=== PATIENT | female | born 1960 | race Caucasian/White ===

== ENCOUNTER → 2020-02-06 14:55 | Outpatient (BNVA) | payer OTHER, SELFPAY | PROVIDERS: PCP Internal Medicine; Referring Provider Internal Medicine; Visit Provider Internal Medicine | DX: I95.0 Idiopathic hypotension (principal); Z86.73 Personal history of transient ischemic attack (TIA), and cerebral infarction without residual deficits; Z79.82 Long term (current) use of aspirin; Z79.899 Other long term (current) drug therapy | CPT/HCPCS: 99212 ==

== ENCOUNTER 2021-12-13 16:10 | Observation (INO) | payer OTHER, SELFPAY ==
[2021-12-13] VITALS (7 sets, daily range): BP systolic 95–147; BP diastolic 24–88; PULSE 50–74; RESP 15–18; TEMP 36.2–37.9; O2SAT 90–94; BMI 22.8
--- NOTE | ~2021-12-13 | CT_ITS ---
EXAMINATION: CT ANGIOGRAM HEAD CT ANGIOGRAM NECK CLINICAL INFORMATION: Reason for Exam slurred speech, hx of stroke COMPARISON: CTA head and neck 04/14/2019 TECHNIQUE: Initial noncontrast taper and floater imaging of the head and neck was performed. Comparison is made with noncontrast head CT from earlier today. Test bolus sequences followed by intravenous administration 70 mL of Omnipaque 350. Helical imaging was performed in the axial plane from the aortic arch to the skull vertex. Delayed postcontrast imaging of the head was also performed. The data was processed at the hybrid technologist's workstation for generation of MIP sequences. Angled MIPs and volume rendered reformatted images were also generated at an offline 3D workstation. Stenoses are assessed in accordance with NASCET criteria unless otherwise indicated. DLP: 1421 mGy-cm This CT examination was performed using dose optimization techniques as appropriate, variously including the following: *Automated exposure control. *Adjustment of mA and/or kV according to patient size (this includes techniques or standardized protocols for targeted exams where dose is matched to indication/reason for exam; i.e. extremities or head). *Use of iterative reconstruction technique. FINDINGS: CT Head: There is no evidence of acute intracranial hemorrhage or edematous territorial infarction. There is no abnormal attenuation within the brain parenchyma. Dowd-white matter differentiation is preserved. The ventricles are normal in size and configuration. No evidence for obstructive hydrocephalus. No abnormal mass effect or midline shift. No extra-axial fluid collections. No pathologic intra-axial enhancement or regional oligemia. No acute soft tissue or osseous abnormalities. The mastoid air cells and paranasal sinuses are clear. CT Neck: Status post thyroidectomy. The remaining cervical soft tissues are within normal limits. Multilevel cervical spondylosis. There are multiple dental caries and periapical lucencies. CT Upper Chest: Biapical pulmonary scarring and paraseptal and centrilobular emphysema. Evaluation of the lung apices, particularly the right lung apex, is significantly limited due to motion artifact as well as streak artifact from contrast in the right superior vena cava. The visualized lung apices and upper mediastinum are within normal limits. Neck CTA: Aortic Arch: Normal contour and caliber. Classic 3 vessel branching pattern of the aortic arch. Great Vessel Origins: No significant stenosis of the branch origins. Right Common Carotid Artery: No focal stenosis or occlusion. Cervical Right Internal Carotid Artery: Normal opacification without focal stenosis or occlusion. Left Common Carotid Artery: No focal stenosis or occlusion. Cervical Left Internal Carotid Artery: Normal opacification without focal stenosis or occlusion. Cervical Right Vertebral Artery: No focal stenosis or occlusion. Cervical Left Vertebral Artery: No focal stenosis or occlusion. Brain CTA: Intracranial Internal Carotid Arteries: No focal stenosis or occlusion. Right Anterior Cerebral Artery: Normal A1 segment. Normal opacification of the distal MALU segments. Left Anterior Cerebral Artery: Normal A1 segment. Normal opacification of the distal MALU segments. Fenestrated proximal A2 segment. Anterior Communicating Artery: Normal. Right Middle Cerebral Artery: Normal M1 segment of the MCA without focal stenosis or occlusion. Normal arborization of the distal segments. Left Middle Cerebral Artery: Normal M1 segment of the MCA without focal stenosis or occlusion. Normal arborization of the distal segments. Right Vertebral Artery: Normal V4 segment. Left Vertebral Artery: Normal V4 segment. Basilar Artery: Normal without focal stenosis or occlusion. Normal appearance of the proximal superior cerebellar arteries. Right Posterior Cerebral Artery: The P1 segment is diminutive. origin of the BLOW MOLD OPERATOR with robust opacification of the posterior communicating artery. Normal opacification of the distal BLOW MOLD OPERATOR segments. Left Posterior Cerebral Artery: Normal P1 segment. Normal opacification of the distal BLOW MOLD OPERATOR segments. Normal opacification of the superior sagittal, straight, transverse, and sigmoid sinuses. CT/CT angio head neck stroke IMPRESSION: No arterial high grade stenosis or large vessel occlusion in the head or neck. Above impression was communicated to Dr. Shanae Byers on 12/13/2021 at 5:05 PM
--- NOTE | ~2021-12-13 | MR_ITS ---
EXAMINATION: MR BRAIN WITHOUT CONTRAST CLINICAL INFORMATION: CVA COMPARISON: CTA head and neck 12/13/2021, MRI of the brain without contrast 04/15/2019 TECHNIQUE: Multiplanar multisequence MR imaging of the brain was obtained without intravenous contrast. FINDINGS: There is no acute infarct on diffusion-weighted imaging. There is no intracranial hemorrhage on iron-sensitive imaging. No extra-axial collection or mass effect/herniation. Scattered periventricular and deep white matter T2 FLAIR hyperintensities consistent with mild underlying microangiopathy. Chronic hemosiderin staining along the right superior aspect of the cerebellum, likely sequela of prior hemorrhage. No hydrocephalus. Mild generalized cerebral volume loss with commensurate sulcal and ventricular prominence. The major flow voids at the skull base are preserved. Small cavum septum pellucidum et vergae The midline structures are normal. The cerebellar tonsils are normally positioned. The craniocervical junction is normal. Marrow signal is within normal limits. The visualized soft tissues are without significant abnormality. No signal abnormality within the paranasal sinuses or within the mastoid air cells. MR/MR head/brain wo con IMPRESSION: No acute infarct or other acute intracranial abnormality
--- NOTE | ~2021-12-13 | CT_ITS ---
EXAMINATION: CT HEAD WITHOUT CONTRAST (STROKE PROTOCOL) CLINICAL INFORMATION: Stroke protocol. Slurred speech COMPARISON: Baseline 04/15/2019 TECHNIQUE: Contiguous axial imaging was performed from the skull base to vertex without intravenous administration of contrast. This CT examination was performed using dose optimization techniques as appropriate, variously including the following: *Automated exposure control *Adjustment of mA and/or kV according to patient size (this includes techniques or standardized protocols for targeted exams where dose is matched to indication/reason for exam; i.e. extremities or head) *Use of iterative reconstruction technique DLP: 660 mGy-cm FINDINGS: No acute hemorrhage. No definite acute edematous infarct. No extra-axial collections. No hydrocephalus. Brainstem and cerebellum intact. No calvarial abnormality. CT/CT head for stroke IMPRESSION: No acute intracranial pathology. This critical result was called to Rosalind Byers at 4:35 PM hours on 12/13/2021. It was ascertained that the content and urgency of the report was understood at the time of direct communication.
--- NOTE | ~2021-12-13 | XR_ITS ---
EXAMINATION: XR CHEST CLINICAL INFORMATION: Dizziness. Slurred speech. COMPARISON: Prior chest radiographs, most recently 04/14/2019 TECHNIQUE: Frontal view of the chest was obtained. FINDINGS: There are multiple surgical clips again noted on either side of the trachea. No significant abnormality is noted involving the heart, lungs, mediastinum, bony thorax or soft tissues. XR/XR chest 1V IMPRESSION: Unremarkable examination.
--- NOTE | 2021-12-13 16:19 | ED_ITS ---
HPI - General Adult General Chief complaint: Stroke Stated complaint: ? stroke slurred speak weakness left side Time Seen by Provider: 12/13/21 16:14 Source: patient and family (daughter) Mode of arrival: ambulatory Limitations: no limitations History of Present Illness HPI narrative: Patient is a 61 year old female presenting to the emergency department today with left sided weakness and trouble word finding. Patient states that over the last 2-3 days she has been having progressively worsening left sided weakness and word finding. Patient's daughter states that during her time with the patient this evening she noticed it getting worse. Patient states that she had a stroke 2 years ago and at that time, had right sided weakness. Patient states that at that time, she was on Eliquis for a month and then was stopped. Patient denies any dizziness, lightheadedness, abdominal pain, nausea, vomiting, fever, chills, blurry vision, double vision, loss of vision, chest pain, difficulty breathing, shortness of breath, back pain, night sweats, pain with urination, increased urinary frequency, increased urinary urgency, blood in her urine or stool, syncope or a near syncopal episode, recent trauma or falls, bowel incontinence, bladder incontinence, bowel retention, bladder retention, or any other complaints at this time. Patient states that she does have COPD and she is still a daily smoker. Onset (ago): day(s) (2-3) Relieving factors: none Exacerbating factors: none Associated symptoms: denies other symptoms Treatments prior to arrival: none Related Data Home Medications Medication Instructions Recorded Confirmed ascorbic acid (vitamin C) 250 mg 1 tab PO DAILY 12/13/21 12/13/21 tablet aspirin 81 mg tablet,delayed 81 mg PO DAILY 12/13/21 12/13/21 release clonazepam 0.5 mg tablet 0.5 mg PO DAILY PRN Anxiety 12/13/21 12/13/21 clonazepam 0.5 mg tablet 1 tab PO DAILY 12/13/21 12/13/21 coenzyme Q10 100 mg capsule 1 cap PO SUWEFR@0900 12/13/21 12/13/21 ergocalciferol (vitamin D2) 1,250 1 cap PO QWEEK 12/13/21 12/13/21 mcg (50,000 unit) capsule (Vitamin D2) fluticasone 100 mcg-salmeterol 50 1 puff inhalation BID 12/13/21 12/13/21 mcg/dose blistr powdr for inhalation (Advair Diskus) gabapentin 400 mg capsule 1 cap PO TID 12/13/21 12/13/21 lamotrigine 100 mg tablet 1 tab PO BID 12/13/21 12/13/21 tiotropium bromide 18 mcg capsule 1 cap inhalation DAILY 12/13/21 12/13/21 with inhalation device (Spiriva with HandiHaler) tramadol 50 mg tablet 1 tab PO Q6H PRN Pain 12/13/21 12/13/21 Allergies Allergy/AdvReac Type Severity Reaction Status Date / Time dexamethasone [From DECADRON] Allergy Unknown UNKNOWN Verified 12/13/21 16:31 ketorolac [From TORADOL] Allergy Unknown SEVERE RASH Verified 12/13/21 16:31 mushroom [MUSHROOMS] Allergy Unknown UNKNOWN Verified 12/13/21 16:31 oxcarbazepine Allergy Unknown RASH Verified 12/13/21 16:31 [From TRILEPTAL] prochlorperazine Allergy Unknown SEVERE RASH Verified 12/13/21 16:31 [PROCHLORPERAZINE] shellfish derived Allergy Unknown N/V Verified 12/13/21 16:31 [SHELLFISH DERIVED] SEAFOOD Allergy Unknown N/V Uncoded 12/13/21 16:31 Review of Systems Constitutional: Constitutional: Reports no additional constitutional complaints, Denies chills, Denies fever(s) and Denies night sweats Eyes: Eyes: Reports no additional eye complaints, Denies blurry vision, Denies change in vision, Denies diplopia, Denies eye discharge, Denies loss of vision and Denies eye pain ENT: Denies dizziness Cardiovascular: Cardiovascular: Reports no additional cardiovascular complaints, Denies chest pain, Denies lightheadedness, Denies Loss of Consciousness and Denies dyspnea Respiratory: Respiratory: Reports no additional respiratory complaints and Denies dyspnea Gastrointestinal: Gastrointestinal: Reports no additional gastrointestinal complaints, Denies abdominal pain, Denies melena, Denies hematochezia, Denies change in bowel habits and Denies change in stool character Genitourinary: Genitourinary: Denies hematuria, Denies urinary frequency, Denies dysuria, Denies urinary incontinence, Denies urinary hesitancy and Denies urinary urgency Musculoskeletal: Musculoskeletal: Reports no additional musculoskeletal complaints, Denies numbness and Denies tingling Neurologic: Denies dizziness, Denies loss of vision, Denies numbness and Denies tingling Comments: left sided weakness, trouble word finding Psychiatric: Psychiatric: Reports no additional psychiatric complaints Endocrine: Endocrine: Reports no additional endocrine complaints Hematologic/Lymphatic: Hematologic/Lymphatic: Reports no additional hematologic/lymphatic complaints Allergic/Immunologic: Allergic/Immunologic: Reports no additional allergic/immunologic complaints PMFSH Past Medical History Attestation statement: The following information was validated with the patient. Source: old records reviewed and obtained from family (daughter) Medical History Cerebrovascular accident Idiopathic hypotension Surgical History History of endoscopy (~01/15/20) History of thyroidectomy History of transesophageal echocardiography ([facility]) (~09/29/19) Family History Family History Father Myocardial infarction Mother No problems noted. Social History Social History Patient Tobacco Use Status: Current everyday Tobacco user Cigarettes Per Day: 2 Advance Directives: Yes Advance Directives Information Provided: No Advance Directives on File: No Patient : No Physical Exam ED Vital Signs: Vital Signs - 24 hr 12/13/21 16:14 12/13/21 16:54 12/13/21 17:43 Temperature 98.3 F 97.4 F 98.2 F Pulse Rate 74 64 55 Respiratory Rate 16 16 16 Blood Pressure 147/88 H 114/55 L Pulse Oximetry 90 L 93 94 Oxygen Delivery Method Room Air Nasal Cannula Nasal Cannula Oxygen Flow Rate 1.5 1.5 12/13/21 19:12 Temperature 100.2 F Pulse Rate 60 Respiratory Rate 16 Blood Pressure 106/48 L Pulse Oximetry 92 Oxygen Delivery Method Nasal Cannula Oxygen Flow Rate 1 BMI result Body Mass Index 20.0 Const General: cooperative, no acute distress, alert and awake Nutritional Appearance: well nourished Orientation/consciousness: patient oriented x3 Limitations: no limitations HENMT Head: Yes normal to inspection and Yes atraumatic Ears: hearing grossly normal bilaterally and external ears normal General nose exam: Normal external nose present, no nasal discharge noted and no epistaxis Face and sinus: Yes normal facial exam, No abrasion and No laceration Mouth: Normal oral and palatal mucosa present, no drooling and no muffled voice Eyes General: appearance normal, both eyes and all related structures Periorbital: periorbital findings normal Eyelids: Yes eyelids normal Conjunctivae: conjunctivae normal Pupils: Equal, round and reactive pupils present EOM: EOMs intact bilaterally Neck Neck: Yes normal visual inspection, Yes full ROM and Yes no lymphadenopathy Chest Chest palpation & inspection: normal inspection of the chest Resp Effort & Inspection: normal respiratory effort and able to speak in complete sentences Auscultation: clear to auscultation bilaterally Cardio Rate: regular rate Rhythm: regular rhythm GI Inspection: Yes normal to inspection Neuro General: patient oriented x3 and moves all extremities Cranial nerves: Yes Equal, round and reactive pupils present Cognition (Neuro): normal cognition Motor exam (neuro): Other motor observations present (weakness noted to the left upper and lower extremity) Extrem General: Yes normal to inspection, Yes full ROM and Yes capillary refill normal Psych Appearance: grossly normal Mental Status: mental status grossly normal Affect: normal affect Attitude: cooperative Thought process: Normal thought process present Thought content: Normal thought content present Insight: Good insight present (Psych) NIH Stroke Scale Internal: Initial- Upon Arrival Time: 16:19 Level of Consciousness: Alert Level of Consciousness Questions: Answers both questions correctly Level of Consciousness Commands: Performs both tasks correctly Best Gaze: Normal Visual: No visual loss Facial Palsy: Normal Motor Arm (Right): No drift Motor Arm (Left): Some effort against gravity Motor Leg (Right): No drift Motor Leg (Left): Some effort against gravity Limb Ataxia: Present in two limbs Sensory: Normal Best Language: No aphasia Dysarthia: Normal Extinction and Inattention: No abnormality Score: 6 Medical Decision Making [facility] Narrative Medical decision making narrative: Patient is a 61 year old female presenting to the emergency department today w ith left sided weakness. Patient's physical exam showed left sided arm and leg weakness with bilateral clonus. Patient's blood work was unremarkable. Patient's urine showed no acute process. Patient's EKG was unremarkable. Patient's chest x-ray, head CT, head CTA, and neck CTA all showed no acute process. Patient was examined by Dr. Valencia who agreed the patient had bilateral clonus with definite left sided weakness. He spoke to Dr. Marmolejo, who recommended giving Plavix and admitting. I explained my physical exam findings as well as all test results to the patient and the patient's daughter. I answered all questions asked by the patient and the patient's daughter. I spoke to Dr. Garibay who agreed to admission. Patient and the patient's daughter verbalized agreement and understanding with this treatment plan and admission. Medical Records Medical records reviewed: Yes I reviewed the patient's medical records. Lab Data Lab results reviewed: Yes I reviewed the patient's lab results. Result diagrams: 12/13/21 17:30 12/13/21 18:02 Labs: Lab Results 12/13/21 12/13/21 12/13/21 Range/Units 17:10 17:30 17:30 WBC 8.9 (4.8-10.8) X10*3/uL RBC 5.04 (4.20-5.50) X10*6/uL Hgb 15.9 (12.0-16.0) g/dl Hct 49.5 H (37.0-47.0) % MCV 98.2 H (80.0-98.0) fL MCH 31.5 (27.0-33.0) pg MCHC 32.1 (31.0-35.0) g/dl RDW 14.3 (11.0-16.0) % Plt Count 295 (160-400) X10*3/uL MPV 10.0 (9.4-12.3) fL Immature Gran % (Auto) 0.5 H (0.0-0.4) % Neut % (Auto) 66.3 (45-73) % Lymph % (Auto) 27.2 (20-40) % Wallace % (Auto) 4.5 (2-11) % Eos % (Auto) 0.9 (0-4) % Baso % (Auto) 0.6 (0-2) % Lymph # (Auto) 2.4 (1.2-4.9) X10*3/uL Wallace # (Auto) 0.4 (0.1-1.2) X10*3/uL Eos # (Auto) 0.1 (0.0-0.4) X10*3/uL Baso # (Auto) 0.1 (0.0-0.2) X10*3/uL Abs Immat Gran (auto) 0.04 H (0.00-0.03) X10*3/uL Absolute Neuts (auto) 5.9 (2.0-8.3) x10*3/uL Absolute Nucleated RBC 0.000 (0.0-0.012) X10*3/uL Nucleated RBC % (auto) 0.0 (0.0-0.2) /100WBC PT 10.8 (10.0-13.1) SEC INR 0.9 (0.9-1.1) APTT 38.7 H (26.0-36.4) SEC Sodium (135-145) mmol/L Potassium (3.3-5.1) mmol/L Chloride (96-108) mmol/L Carbon Dioxide (22-29) mmol/L Anion Gap (12-20) BUN (9-16) mg/dL Creatinine (0.5-1.4) mg/dL Estim Creat Clear Calc Estimated GFR POC Glucose 87 (60-115) mg/dL Random Glucose (60-115) mg/dL Calcium (8.4-10.2) mg/dL Magnesium (1.6-2.6) mg/dL Total Bilirubin (0.0-1.0) mg/dL Direct Bilirubin (0.0-0.5) mg/dL AST (5-31) U/L ALT (0-31) U/L Alkaline Phosphatase (39-117) U/L Total Creatine Kinase (26-140) U/L Troponin I High Sens (<3.5-17.0) ng/L Total Protein (6.5-8.0) g/dL Albumin (3.5-5.0) g/dL TSH (0.32-4.0) uIU/mL Urine Color Urine Appearance Urine pH (5.0-9.0) Ur Specific [place] (1.005-1.025) Urine Protein (Neg-Trace) mg/dL Urine Glucose (UA) (Negative) mg/dL Urine Ketones (Negative) mg/dL Urine Blood (Negative) Urine Nitrite (Negative) Ur Leukocyte Esterase (Negative) Urine RBC (0-2) /HPF Urine WBC (0-5) /HPF Ur Squamous Epith Cells (0-2) /HPF Urine Bacteria (None Seen) Hyaline Casts (0-2) /LPF Ethyl Alcohol mg/dL COVID-19 ([facility]) (Negative) COVID-19 Clin Com 12/13/21 12/13/21 12/13/21 Range/Units 17:30 17:30 18:02 WBC (4.8-10.8) X10*3/uL RBC (4.20-5.50) X10*6/uL Hgb (12.0-16.0) g/dl Hct (37.0-47.0) % MCV (80.0-98.0) fL MCH (27.0-33.0) pg MCHC (31.0-35.0) g/dl RDW (11.0-16.0) % Plt Count (160-400) X10*3/uL MPV (9.4-12.3) fL Immature Gran % (Auto) (0.0-0.4) % Neut % (Auto) (45-73) % Lymph % (Auto) (20-40) % Wallace % (Auto) (2-11) % Eos % (Auto) (0-4) % Baso % (Auto) (0-2) % Lymph # (Auto) (1.2-4.9) X10*3/uL Wallace # (Auto) (0.1-1.2) X10*3/uL Eos # (Auto) (0.0-0.4) X10*3/uL Baso # (Auto) (0.0-0.2) X10*3/uL Abs Immat Gran (auto) (0.00-0.03) X10*3/uL Absolute Neuts (auto) (2.0-8.3) x10*3/uL Absolute Nucleated RBC (0.0-0.012) X10*3/uL Nucleated RBC % (auto) (0.0-0.2) /100WBC PT (10.0-13.1) SEC INR (0.9-1.1) APTT (26.0-36.4) SEC Sodium 142 (135-145) mmol/L Potassium 4.8 (3.3-5.1) mmol/L Chloride 104 (96-108) mmol/L Carbon Dioxide 28 (22-29) mmol/L Anion Gap 15 (12-20) BUN 11 (9-16) mg/dL Creatinine 1.12 (0.5-1.4) mg/dL Estim Creat Clear Calc 51.1 Estimated GFR 50 POC Glucose (60-115) mg/dL Random Glucose 82 (60-115) mg/dL Calcium 9.1 (8.4-10.2) mg/dL Magnesium 2.2 (1.6-2.6) mg/dL Total Bilirubin 0.5 (0.0-1.0) mg/dL Direct Bilirubin 0.2 (0.0-0.5) mg/dL AST 10 (5-31) U/L ALT 6 (0-31) U/L Alkaline Phosphatase 83 (39-117) U/L Total Creatine Kinase 46 (26-140) U/L Troponin I High Sens < 3.5 (<3.5-17.0) ng/L Total Protein 6.5 (6.5-8.0) g/dL Albumin 4.1 (3.5-5.0) g/dL TSH 4.75 H (0.32-4.0) uIU/mL Urine Color Yellow Urine Appearance Clear Urine pH 6.5 (5.0-9.0) Ur Specific [place] 1.020 (1.005-1.025) Urine Protein Negative (Neg-Trace) mg/dL Urine Glucose (UA) Negative (Negative) mg/dL Urine Ketones Negative (Negative) mg/dL Urine Blood Negative (Negative) Urine Nitrite Negative (Negative) Ur Leukocyte Esterase Trace H (Negative) Urine RBC 0-2 (0-2) /HPF Urine WBC 0-5 (0-5) /HPF Ur Squamous Epith Cells 0-2 (0-2) /HPF Urine Bacteria None Seen (None Seen) Hyaline Casts 0-2 (0-2) /LPF Ethyl Alcohol < 10 mg/dL COVID-19 ([facility]) (Negative) COVID-19 Clin Com 12/13/21 Range/Units 19:23 WBC (4.8-10.8) X10*3/uL RBC (4.20-5.50) X10*6/uL Hgb (12.0-16.0) g/dl Hct (37.0-47.0) % MCV (80.0-98.0) fL MCH (27.0-33.0) pg MCHC (31.0-35.0) g/dl RDW (11.0-16.0) % Plt Count (160-400) X10*3/uL MPV (9.4-12.3) fL Immature Gran % (Auto) (0.0-0.4) % Neut % (Auto) (45-73) % Lymph % (Auto) (20-40) % Wallace % (Auto) (2-11) % Eos % (Auto) (0-4) % Baso % (Auto) (0-2) % Lymph # (Auto) (1.2-4.9) X10*3/uL Wallace # (Auto) (0.1-1.2) X10*3/uL Eos # (Auto) (0.0-0.4) X10*3/uL Baso # (Auto) (0.0-0.2) X10*3/uL Abs Immat Gran (auto) (0.00-0.03) X10*3/uL Absolute Neuts (auto) (2.0-8.3) x10*3/uL Absolute Nucleated RBC (0.0-0.012) X10*3/uL Nucleated RBC % (auto) (0.0-0.2) /100WBC PT (10.0-13.1) SEC INR (0.9-1.1) APTT (26.0-36.4) SEC Sodium (135-145) mmol/L Potassium (3.3-5.1) mmol/L Chloride (96-108) mmol/L Carbon Dioxide (22-29) mmol/L Anion Gap (12-20) BUN (9-16) mg/dL Creatinine (0.5-1.4) mg/dL Estim Creat Clear Calc Estimated GFR POC Glucose (60-115) mg/dL Random Glucose (60-115) mg/dL Calcium (8.4-10.2) mg/dL Magnesium (1.6-2.6) mg/dL Total Bilirubin (0.0-1.0) mg/dL Direct Bilirubin (0.0-0.5) mg/dL AST (5-31) U/L ALT (0-31) U/L Alkaline Phosphatase (39-117) U/L Total Creatine Kinase (26-140) U/L Troponin I High Sens (<3.5-17.0) ng/L Total Protein (6.5-8.0) g/dL Albumin (3.5-5.0) g/dL TSH (0.32-4.0) uIU/mL Urine Color Urine Appearance Urine pH (5.0-9.0) Ur Specific [place] (1.005-1.025) Urine Protein (Neg-Trace) mg/dL Urine Glucose (UA) (Negative) mg/dL Urine Ketones (Negative) mg/dL Urine Blood (Negative) Urine Nitrite (Negative) Ur Leukocyte Esterase (Negative) Urine RBC (0-2) /HPF Urine WBC (0-5) /HPF Ur Squamous Epith Cells (0-2) /HPF Urine Bacteria (None Seen) Hyaline Casts (0-2) /LPF Ethyl Alcohol mg/dL COVID-19 ([facility]) Negative (Negative) COVID-19 Clin Com See Note Imaging Data Chest x-ray: Attestation: I personally reviewed and interpreted this imaging study as follows: My impression: No acute process. Radiologist's impression: EXAMINATION: XR CHEST CLINICAL INFORMATION: Dizziness. Slurred speech. COMPARISON: Prior chest radiographs, most recently 04/14/2019 TECHNIQUE: Frontal view of the chest was obtained. FINDINGS: There are multiple surgical clips again noted on either side of the trachea. No significant abnormality is noted involving the heart, lungs, mediastinum, bony thorax or soft tissues. XR/XR chest 1V IMPRESSION: Unremarkable examination. Dictated By: Hunter Pelaez MD Signed By: Electronically signed by Hunter Pelaez MD 12/13/[address] scan - head: Attestation: I personally reviewed and interpreted this imaging study as follows: My impression: No acute process. Radiologist's impression: EXAMINATION: CT HEAD WITHOUT CONTRAST (STROKE PROTOCOL) CLINICAL INFORMATION: Stroke protocol. Slurred speech? COMPARISON: Baseline 04/15/2019 TECHNIQUE: Contiguous axial imaging was performed from the skull base to vertex without intravenous administration of contrast. This CT examination was performed using dose optimization techniques as appropriate, variously including the following: *Automated exposure control *Adjustment of mA and/or kV according to patient size (this includes techniques or standardized protocols for targeted exams where dose is matched to indication/reason for exam; i.e. extremities or head) *Use of iterative reconstruction technique DLP: 660 mGy-cm FINDINGS: No acute hemorrhage. No definite acute edematous infarct. No extra-axial collections. No hydrocephalus. Brainstem and cerebellum intact. No calvarial abnormality. CT/CT head for stroke IMPRESSION: No acute intracranial pathology. ? This critical result was called to Shanae Byers at 4:35 PM hours on 12/13/2021. It was ascertained that the content and urgency of the report was understood at the time of direct communication. Dictated By: Francisco Wolf MD Signed By: Electronically signed by Francisco Wolf MD 12/13/21 7210 CTA head and neck : Attestation: I personally reviewed and interpreted this imaging study as follows: My impression: No acute process. Radiologist's impression: EXAMINATION: CT ANGIOGRAM HEAD CT ANGIOGRAM NECK CLINICAL INFORMATION: Reason for Exam slurred speech, hx of stroke COMPARISON: CTA head and neck 04/14/2019 TECHNIQUE: Initial noncontrast office service coordinator imaging of the head and neck was performed. Comparison is made with noncontrast head CT from earlier today. Test bolus sequences followed by intravenous administration 70 mL of Omnipaque 350. Helical imaging was performed in the axial plane from the aortic arch to the skull vertex. Delayed postcontrast imaging of the head was also performed. The data was processed at the nanotechnologist's workstation for generation of MIP sequences. Angled MIPs and volume rendered reformatted images were also generated at an offline 3D workstation. Stenoses are assessed in accordance with NASCET criteria unless otherwise indicated. DLP: 1421 mGy-cm This CT examination was performed using dose optimization techniques as appropriate, variously including the following: *Automated exposure control. *Adjustment of mA and/or kV according to patient size (this includes techniques or standardized protocols for targeted exams where dose is matched to indication/reason for exam; i.e. extremities or head). *Use of iterative reconstruction technique. FINDINGS: CT Head: There is no evidence of acute intracranial hemorrhage or edematous territorial infarction. There is no abnormal attenuation within the brain parenchyma. Dowd-white matter differentiation is preserved. The ventricles are normal in size and configuration. No evidence for obstructive hydrocephalus. No abnormal mass effect or midline shift. No extra-axial fluid collections. No pathologic intra-axial enhancement or regional oligemia. No acute soft tissue or osseous abnormalities. The mastoid air cells and paranasal sinuses are clear. CT Neck: Status post thyroidectomy. The remaining cervical soft tissues are within normal limits. Multilevel cervical spondylosis. There are multiple dental caries and periapical lucencies. CT Upper Chest: Biapical pulmonary scarring and paraseptal and centrilobular emphysema. Evaluation of the lung apices, particularly the right lung apex, is significantly limited due to motion artifact as well as streak artifact from contrast in the right superior vena cava. The visualized lung apices and upper mediastinum are within normal limits. Neck CTA: Aortic Arch: Normal contour and caliber. Classic 3 vessel branching pattern of the aortic arch. Great Vessel Origins: No significant stenosis of the branch origins. Right Common Carotid Artery: No focal stenosis or occlusion. Cervical Right Internal Carotid Artery: Normal opacification without focal stenosis or occlusion. Left Common Carotid Artery: No focal stenosis or occlusion. Cervical Left Internal Carotid Artery: Normal opacification without focal stenosis or occlusion. Cervical Right Vertebral Artery: No focal stenosis or occlusion. Cervical Left Vertebral Artery: No focal stenosis or occlusion. Brain CTA: Intracranial Internal Carotid Arteries: No focal stenosis or occlusion. Right Anterior Cerebral Artery: Normal A1 segment. Normal opacification of the distal MALU segments. Left Anterior Cerebral Artery: Normal A1 segment. Normal opacification of the distal MALU segments. Fenestrated proximal A2 segment. Anterior Communicating Artery: Normal. Right Middle Cerebral Artery: Normal M1 segment of the MCA without focal stenosis or occlusion. Normal arborization of the distal segments. Left Middle Cerebral Artery: Normal M1 segment of the MCA without focal stenosis or occlusion. Normal arborization of the distal segments. Right Vertebral Artery: Normal V4 segment. Left Vertebral Artery: Normal V4 segment. Basilar Artery: Normal without focal stenosis or occlusion. Normal appearance of the proximal superior cerebellar arteries. Right Posterior Cerebral Artery: The P1 segment is diminutive. origin of the PAEDIATRIC PHYSIOTHERAPIST with robust opacification of the posterior communicating artery. Normal opacification of the distal PAEDIATRIC PHYSIOTHERAPIST segments. Left Posterior Cerebral Artery: Normal P1 segment. Normal opacification of the distal PAEDIATRIC PHYSIOTHERAPIST segments. Normal opacification of the superior sagittal, straight, transverse, and sigmoid sinuses. CT/CT angio head? neck stroke IMPRESSION: ? No arterial high grade stenosis or large vessel occlusion in the head or neck. ? ? Above impression was communicated to Dr. Shanae Byers on 12/13/2021 at 5:05 PM Dictated By: Hunter Brush Signed By: Electronically signed by Hunter?Gonsalo 12/13/21 1723 Critical Care Time Critical Care Time Critical Care Time: Yes Total Critical Care Time: 30 Attestation: I spent 30 minutes of Critical Care Time with this patient. This does not include time spent on separately reported billable procedures. Discharge Plan Discharge Clinical Impression: Cerebrovascular accident Patient Disposition: Admitted As Inpatient
--- NOTE | 2021-12-13 16:19 | ECG_ITS ---
Test Reason : STROKE PROTOCOL Blood Pressure : / mmHG Vent. Rate : 055 BPM Atrial Rate : 055 BPM P-R Int : 138 ms QRS Dur : 084 ms QT Int : 420 ms P-R-T Axes : 080 076 092 degrees QTc Int : 401 ms Sinus bradycardia Nonspecific ST and T wave abnormality Abnormal ECG When compared with ECG of 14-APR-2019 19:27, Heart rate has decreased Referred By: Shanae Byers Electronically Signed By:JOY VASQUEZ
--- NOTE | 2021-12-13 16:37 | PC.NURSE ---
Preliminary med rec completed via family and last claim. Pharmacy updated and stated that they will confirm medication will family.
[2021-12-13] MEDS: iohexoL 350 MG/ML 100 ML INFUS..BTL IV (16:39)
--- NOTE | 2021-12-13 16:40 | PC.NURSE ---
patient brought to CT scanned IV placed . neurological assessment performed by Elly Reina patient shows deficient in left arm and left leg . Patient unable to stand and walk . Noticed this started on around 4 pm .
[2021-12-13 17:14] LABS: Glucose, Whole Blood 87 mg/dL (60-115)
--- NOTE | 2021-12-13 17:34 | PC.NURSE ---
Patient neurological assessment . patient unable to smile . when patient closes eyes left arm drifts down . when patient stands she shakes and has difficulty stepping forward without shaking , reports that has increased over time since . She is a/o x4 . pupils equal and reactive . heart rate regular at 55 beats per minute . patient smokes cigarettes lungs diminished throughout , patient has history of COPD , O2 level 89 on room air put patient on 1.5 l oxygen level improved to 93%. patient reports a headache 5/10 pain level . labs and urine sent to lab . EKG done . Patient on air sampling and monitoring . patient aware of plan of care .
[2021-12-13 17:35] LABS: MANUAL DIFF FLAG NO
[2021-12-13 17:37] LABS: Appearance Urine Clear; Color Urine Yellow; Glucose Urine UA Negative (Negative); Leukocyte Esterase Urine Trace (Negative); Nitrite Urine Negative (Negative); PH 6.5 (5.0-9.0); UMIC TRIGGER UACC YES; Urine Blood Negative (Negative); Urine Ketones Negative (Negative); Urine Protein Negative (Neg-Trace)
[2021-12-13 17:38] LABS: Basophils Absolute Auto 0.1 X10*3/uL (0.0-0.2); Basophils Percent Auto 0.6 % (0-2); Eosinophils Absolute Auto 0.1 X10*3/uL (0.0-0.4); Eosinophils Percent Auto 0.9 % (0-4); Hematocrit 49.5 % (37.0-47.0); Hemoglobin 15.9 g/dl (12.0-16.0); Imm Gran Abs Auto 0.04 X10*3/uL (0.00-0.03); Imm Gran Pct Auto 0.5 % (0.0-0.4); Lymphocytes Absolute Auto 2.4 X10*3/uL (1.2-4.9); Lymphocytes Percent Auto 27.2 % (20-40); Mean Corpuscular HGB Conc 32.1 g/dl (31.0-35.0); Mean Corpuscular Hemoglobin 31.5 pg (27.0-33.0); Mean Corpuscular Volume 98.2 fL (80.0-98.0); Monocytes Absolute Auto 0.4 X10*3/uL (0.1-1.2); Monocytes Percent Auto 4.5 % (2-11); Neutrophils Absolute Auto 5.9 x10*3/uL (2.0-8.3); Neutrophils Percent Auto 66.3 % (45-73); Platelet Count 295 X10*3/uL (160-400); Red Blood Count 5.04 X10*6/uL (4.20-5.50); Red Cell Distribution Width 14.3 % (11.0-16.0); White Blood Count 8.9 X10*3/uL (4.8-10.8)
[2021-12-13 17:42] LABS: Bacteria Urine None Seen (None Seen); Hyaline Casts Urine 0-2 /LPF (0-2); RBC Urine 0-2 /HPF (0-2); Squamous Epithelial Cell Urine 0-2 /HPF (0-2); WBC Urine 0-5 /HPF (0-5)
[2021-12-13 17:54] LABS: Troponin-I High Sensitivity < 3.5 ng/L (<3.5-17.0)
[2021-12-13 18:01] LABS: INTERNATIONAL NORM RATIO 0.9 (0.9-1.1); Prothrombin Time 10.8 SEC (10.0-13.1)
[2021-12-13 18:04] LABS: Partial Thromboplastin Time 38.7 SEC (26.0-36.4)
[2021-12-13 18:05] LABS: Stroke Lab Use COMPLETE
[2021-12-13 18:29] LABS: Alanine Aminotransferase 6 U/L (0-31); Albumin Level 4.1 g/dL (3.5-5.0); Alkaline Phosphatase 83 U/L (39-117); Anion Gap 15 (12-20); Aspartate Amino Transferase 10 U/L (5-31); Bilirubin Direct 0.2 mg/dL (0.0-0.5); Bilirubin Total 0.5 mg/dL (0.0-1.0); Blood Urea Nitrogen 11 mg/dL (9-16); Calcium 9.1 mg/dL (8.4-10.2); Carbon Dioxide 28 mmol/L (22-29); Chloride 104 mmol/L (96-108); Creatinine Clr Calc Pharmacy 51.1; Estimated Glomerular Filt Rate 50; Ethanol < 10 mg/dL; Glucose Random 82 mg/dL (60-115); Magnesium 2.2 mg/dL (1.6-2.6); Potassium 4.8 mmol/L (3.3-5.1); Sodium 142 mmol/L (135-145); Total Protein 6.5 g/dL (6.5-8.0)
--- NOTE | 2021-12-13 18:47 | PHA.MEDREC ---
Addendum entered by Benoit Garcia 12/14/21 09:06: Called [facility] 12/14/21 to follow up on statin. Pharmacy states the only statin in their record is Crestor filled for 30 day supply 10/28/21. Prior to this, patient was on ezetimibe until 03/21/21, per pharmacy records. Original Note: Pharmacy Consult ? Medication Reconciliation Pharmacy has completed the medication reconciliation. Patient reports being on a statin SUWEFR combo'd with Coenzyme Q10, however was not crestor and has a reaction to multiple statins except the one specific statin. Patient could not name the statin, except that it was 10 mg dose. Will follow up with [facility] pharmacy in the morning.
[2021-12-13 18:48] LABS: Thyroid Stimulating Hormone 4.75 uIU/mL (0.32-4.0)
[2021-12-13] MEDS: Clopidogrel Bisulfate 75 MG TABLET PO (19:21)
--- NOTE | 2021-12-13 19:38 | P.HPHOSP_ITS ---
History of Present Illness Date of Service: 12/13/21 Chief Complaint: Weakness this is a 61-year-old female with past medical history of CVA 2 years ago, history of idiopathic hypotension, anxiety, presents to the hospital with complaints of weakness on the left side specially in her leg, loss of balance, difficulty ambulating as a result. as well as disorganized thought and foggy mind. She reports that she noticed her symptoms Started likely about 2-3 days ago. She reports that she has difficulty processing her thoughts or when people talk to her. She had difficulty making food for her cats. She reports worsening weakness in her left lower extremity, with no resolution at this time. she reports a headache for the past 2 days. She denies any change in vision, no change in speech although she does have difficulty finding some words, she denies any chest pain, no shortness of breath, no palpitations, no abdominal pain nausea or vomiting, no diarrhea or constipation, no urinary symptoms and no lower extremity edema. On arrival to the ED patient hemodynamically stable no significant abnormal vitals Labs are significant for WBC count of 8.9, labs otherwise unremarkable, head CT and CT angiogram shows no arterial high-grade stenosis or large vessel occlusion in the head or neck, and no acute intracranial pathology. Patient will be admitted for further management Review of Systems Review of Systems: Yes all other systems are reviewed and are negative [facility] Medical History Cerebrovascular accident Idiopathic hypotension Family History Father Myocardial infarction Mother No problems noted. Surgical History History of endoscopy (~01/15/20) History of thyroidectomy History of transesophageal echocardiography ([facility]) (~09/29/19) Social History Patient Tobacco Use Status: Current everyday Tobacco user Cigarettes Per Day: 2 Advance Directives: Yes Advance Directives Information Provided: No Advance Directives on File: No Patient : No Meds Allergies Allergy/AdvReac Type Severity Reaction Status Date / Time dexamethasone [From DECADRON] Allergy Unknown UNKNOWN Verified 12/13/21 16:31 ketorolac [From TORADOL] Allergy Unknown SEVERE RASH Verified 12/13/21 16:31 mushroom [MUSHROOMS] Allergy Unknown UNKNOWN Verified 12/13/21 16:31 oxcarbazepine Allergy Unknown RASH Verified 12/13/21 16:31 [From TRILEPTAL] prochlorperazine Allergy Unknown SEVERE RASH Verified 12/13/21 16:31 [PROCHLORPERAZINE] shellfish derived Allergy Unknown N/V Verified 12/13/21 16:31 [SHELLFISH DERIVED] SEAFOOD Allergy Unknown N/V Uncoded 12/13/21 16:31 Active Medications: Current Medications Pharmacy Consult (Consult Rx Perform Med Rec) 1 each MISCELLANE ONCE PRN PRN Reason: Consult order Home Medications Medication Instructions Recorded Confirmed Last Taken Type ascorbic acid (vitamin C) 250 mg 1 tab PO DAILY 12/13/21 12/13/21 12/13/21 History tablet aspirin 81 mg tablet,delayed 81 mg PO DAILY 12/13/21 12/13/21 12/13/21 History release clonazepam 0.5 mg tablet 0.5 mg PO DAILY PRN Anxiety 12/13/21 12/13/21 12/13/21 History clonazepam 0.5 mg tablet 1 tab PO DAILY 12/13/21 12/13/21 12/13/21 History coenzyme Q10 100 mg capsule 1 cap PO SUWEFR@0900 12/13/21 12/13/21 12/13/21 History ergocalciferol (vitamin D2) 1,250 1 cap PO QWEEK 12/13/21 12/13/21 12/13/21 History mcg (50,000 unit) capsule (Vitamin D2) fluticasone 100 mcg-salmeterol 50 1 puff inhalation BID 12/13/21 12/13/21 12/13/21 History mcg/dose blistr powdr for inhalation (Advair Diskus) gabapentin 400 mg capsule 1 cap PO TID 12/13/21 12/13/21 12/13/21 History lamotrigine 100 mg tablet 1 tab PO BID 12/13/21 12/13/21 12/13/21 History tiotropium bromide 18 mcg capsule 1 cap inhalation DAILY 12/13/21 12/13/21 12/13/21 History with inhalation device (Spiriva with HandiHaler) tramadol 50 mg tablet 1 tab PO Q6H PRN Pain 12/13/21 12/13/21 12/13/21 History Physical Exam Vital Signs and Narrative: Vital Signs: Last Vital Signs Temp 100.2 F 12/13/21 19:12 Pulse 60 12/13/21 19:12 Resp 16 12/13/21 19:12 BP 106/48 L 12/13/21 19:12 Pulse Ox 92 12/13/21 19:12 O2 Del Method 12/13/21 19:12 O2 Flow Rate 1 12/13/21 19:12 BMI result Body Mass Index 20.0 Const: General: cooperative and no acute distress Orientat ion/consciousness: patient oriented x3 Eyes: General: appearance normal, both eyes and all related structures Pupils: Equal, round and reactive pupils present Resp: Effort & Inspection: normal respiratory effort Auscultation: clear to auscultation bilaterally Cardio: Rate: regular rate Rhythm: regular rhythm GI: Palpation (GI): Soft to palpation Auscultation: normal bowel sounds Skin: General skin exam: no rashes or lesions noted Neuro: Other: strength is 2/5 in both upper and lower extremity unable to lift her left leg off the bed cranial nerves 2- 12 appear intact General: patient oriented x3 Cranial nerves: Yes Equal, round and reactive pupils present Cognition (Neuro): normal cognition Extrem: General: Yes normal to inspection and Yes no pedal edema Results Labs CBC and Chem 7: 12/13/21 17:30 12/13/21 18:02 Labs: Laboratory Results - last 24 hr 12/13/21 12/13/21 12/13/21 17:10 17:30 17:30 MCV 98.2 H MCH 31.5 MCHC 32.1 RDW 14.3 Plt Count 295 MPV 10.0 Immature Gran % (Auto) 0.5 H Neut % (Auto) 66.3 Lymph % (Auto) 27.2 Mcintosh % (Auto) 4.5 Eos % (Auto) 0.9 Baso % (Auto) 0.6 Lymph # (Auto) 2.4 Mcintosh # (Auto) 0.4 Eos # (Auto) 0.1 Baso # (Auto) 0.1 Abs Immat Gran (auto) 0.04 H Absolute Neuts (auto) 5.9 Absolute Nucleated RBC 0.000 Nucleated RBC % (auto) 0.0 PT 10.8 INR 0.9 APTT 38.7 H Anion Gap Estim Creat Clear Calc Estimated GFR POC Glucose 87 Random Glucose Calcium Magnesium Total Bilirubin Direct Bilirubin AST ALT Alkaline Phosphatase Total Creatine Kinase Troponin I High Sens Total Protein Albumin TSH Urine Color Urine Appearance Urine pH Ur Specific [place] Urine Protein Urine Glucose (UA) Urine Ketones Urine Blood Urine Nitrite Ur Leukocyte Esterase Urine RBC Urine WBC Ur Squamous Epith Cells Urine Bacteria Hyaline Casts Ethyl Alcohol 12/13/21 12/13/21 12/13/21 17:30 17:30 18:02 MCV MCH MCHC RDW Plt Count MPV Immature Gran % (Auto) Neut % (Auto) Lymph % (Auto) Mcintosh % (Auto) Eos % (Auto) Baso % (Auto) Lymph # (Auto) Mcintosh # (Auto) Eos # (Auto) Baso # (Auto) Abs Immat Gran (auto) Absolute Neuts (auto) Absolute Nucleated RBC Nucleated RBC % (auto) PT INR APTT Anion Gap 15 Estim Creat Clear Calc 51.1 Estimated GFR 50 POC Glucose Random Glucose 82 Calcium 9.1 Magnesium 2.2 Total Bilirubin 0.5 Direct Bilirubin 0.2 AST 10 ALT 6 Alkaline Phosphatase 83 Total Creatine Kinase 46 Troponin I High Sens < 3.5 Total Protein 6.5 Albumin 4.1 TSH 4.75 H Urine Color Yellow Urine Appearance Clear Urine pH 6.5 Ur Specific [place] 1.020 Urine Protein Negative Urine Glucose (UA) Negative Urine Ketones Negative Urine Blood Negative Urine Nitrite Negative Ur Leukocyte Esterase Trace H Urine RBC 0-2 Urine WBC 0-5 Ur Squamous Epith Cells 0-2 Urine Bacteria None Seen Hyaline Casts 0-2 Ethyl Alcohol < 10 Imaging Radiologist's Impressions: Impressions Head CT 12/13/21 16:27 IMPRESSION: No acute intracranial pathology. This critical result was called to Rosalind Byers at 4:35 PM hours on 12/13/2021. It was ascertained that the content and urgency of the report was understood at the time of direct communication. Head/Neck CTA 12/13/21 16:41 IMPRESSION: No arterial high grade stenosis or large vessel occlusion in the head or neck. Above impression was communicated to Dr. Shanae Byers on 12/13/2021 at 5:05 PM Chest X-Ray 12/13/21 16:50 IMPRESSION: Unremarkable examination. Assessment and Plan (1) Acute CVA (cerebrovascular accident): Status: Acute Plan is a 61-year-old female with past medical history of CVA presents to the hospital with left-sided week # acute CVA - patient has evidence of acute stroke with left-sided weakness - CT head and CT angiogram of the head and neck are negative at this time - will obtain MRI - continue aspirin and statin - neurology consulted - PT OT DVT prophylaxis: Lovenox Quality Stroke Does the patient have a stroke diagnosis?: No VTE Prior VTE?: No VTE Risk Level:: Medical - moderate - high VTE Device Contraindication: Treatment Not Indicated VTE Drug Contraindication: N/A - Med Ordered
[2021-12-13 19:42] LABS: COVID-19 Test Negative (Negative)
[2021-12-13] MEDS: Aspirin Enteric Coated 81 MG TABLET.DR PO (20:51)
[2021-12-13] MEDS: Atorvastatin Calcium 80 MG TABLET PO (20:51)
--- NOTE | 2021-12-13 20:57 | PC.NURSE ---
Report given to kerry in [place]. Plan to go to bed 7
[2021-12-14] MEDS: traMADoL HCL 50 MG TABLET PO ×3 (03:05→20:38)
[2021-12-14 04:00] VITALS: BP 114/59; PULSE 47; RESP 13; TEMP 36.3; O2SAT 93
[2021-12-14 06:21] LABS: MANUAL DIFF FLAG NO
[2021-12-14 06:35] LABS: Basophils Absolute Auto 0.1 X10*3/uL (0.0-0.2); Basophils Percent Auto 0.7 % (0-2); Eosinophils Absolute Auto 0.1 X10*3/uL (0.0-0.4); Eosinophils Percent Auto 1.9 % (0-4); Hematocrit 48.1 % (37.0-47.0); Imm Gran Abs Auto 0.02 X10*3/uL (0.00-0.03); Imm Gran Pct Auto 0.3 % (0.0-0.4); Lymphocytes Absolute Auto 2.7 X10*3/uL (1.2-4.9); Lymphocytes Percent Auto 37.4 % (20-40); Mean Corpuscular HGB Conc 31.2 g/dl (31.0-35.0); Mean Corpuscular Hemoglobin 30.9 pg (27.0-33.0); Mean Corpuscular Volume 99.2 fL (80.0-98.0); Mean Platelet Volume 10.4 fL (9.4-12.3); Monocytes Absolute Auto 0.5 X10*3/uL (0.1-1.2); Monocytes Percent Auto 7.2 % (2-11); Neutrophils Absolute Auto 3.8 x10*3/uL (2.0-8.3); Neutrophils Percent Auto 52.5 % (45-73); Platelet Count 267 X10*3/uL (160-400); Red Blood Count 4.85 X10*6/uL (4.20-5.50); Red Cell Distribution Width 14.2 % (11.0-16.0); White Blood Count 7.2 X10*3/uL (4.8-10.8)
[2021-12-14 06:39] LABS: Anion Gap 15 (12-20); Blood Urea Nitrogen 12 mg/dL (9-16); Calcium 8.8 mg/dL (8.4-10.2); Carbon Dioxide 27 mmol/L (22-29); Chloride 105 mmol/L (96-108); Creatinine Clr Calc Pharmacy 56.7; Estimated Glomerular Filt Rate 56; Glucose Random 88 mg/dL (60-115); Potassium 4.5 mmol/L (3.3-5.1); Sodium 142 mmol/L (135-145)
[2021-12-14 06:43] LABS: Cholesterol 241 mg/dL; HDL Cholesterol 28 mg/dL; LDL Cholesterol Calculated 173 mg/dl; Triglycerides 204 mg/dL
[2021-12-14 08:00] VITALS: BP 101/52; PULSE 51; RESP 18; TEMP 36.5; O2SAT 92
[2021-12-14] MEDS: Ascorbic Acid 250 MG TABLET PO (08:16)
[2021-12-14] MEDS: Aspirin Enteric Coated 81 MG TABLET.DR PO (08:16)
[2021-12-14] MEDS: clonazePAM 0.5 MG TABLET PO (09:28)
[2021-12-14] MEDS: Gabapentin 400 MG CAPSULE PO ×3 (09:38→20:36)
--- NOTE | 2021-12-14 12:12 | PC.NURSE ---
Pt is aox 3, sitting up in bed, neuro checks completed as ordered, no deficits noted outside of slight residual to left side weakness. Pt transfers to bedside commode with stand by assist. Sinus Aaron on telel monitor, asymptomatic denies any CP, dizzy, SOB. Positive bowel sounds x 4, denies n/v. +PP bilateral, lungs expiratory and inspiratory wheezes all barrett, 2L via NC 02. MRI completed, pt ok to have MRI without tele monitor in place. Call cantor in place, denies any other needs at this time, will continue to monitor.
[2021-12-14 12:51] VITALS: BP 95/52; PULSE 50; RESP 18; TEMP 36.6; O2SAT 96
--- NOTE | 2021-12-14 13:28 | P.PNIM_ITS ---
Subjective Subjective Date of Service: 12/14/21 Interval History: seen and examined this morning Follow-up for left-sided weakness Reports 3 days of left-sided weakness especially her left leg. It is making it difficult for her to ambulate as she is recovering from a right ankle fracture and just had her cast off 1 week ago she denies any visual changes or difficulty swallowing Review of Systems Review of Systems: Yes all other systems are reviewed and are negative Constitutional Constitutional: Denies chills and Denies fever(s) Cardiovascular Cardiovascular: Denies chest pain, Denies palpitations and Denies dyspnea Respiratory Respiratory: Denies cough and Denies dyspnea Gastrointestinal Gastrointestinal: Denies abdominal pain, Denies nausea and Denies vomiting Endocrine Endocrine: Denies palpitations Physical Exam Vital Signs: Vital Signs: Last Vital Signs Temp 97.8 F 12/14/21 12:51 Pulse 50 12/14/21 12:51 Resp 18 12/14/21 12:51 BP 95/52 L 12/14/21 12:51 Pulse Ox 96 12/14/21 12:51 O2 Del Method 12/14/21 12:51 O2 Flow Rate 2 12/14/21 12:51 BMI result Body Mass Index 20.0 Const: General: cooperative, comfortable, alert and awake Nutritional Appearance: average body habitus Orientation/consciousness: patient oriented x3 Resp: Other: scattered wheezing Effort & Inspection: normal respiratory effort and able to speak in complete sentences Cardio: Rate: regular rate Heart sounds: S1 normal heart sound present and S2 normal heart sound present GI: Inspection: No distended Palpation (GI): Soft to palpation and nontender Neuro: Other: face symmetrical, tongue midline, no pronator drift EOMI. left arm and lg weak compared to right side General: patient oriented x3 Extrem: General: Yes no pedal edema Objective Data Active Medications Acetaminophen (Acetaminophen 325 Mg Tablet) 650 mg PO Q6H PRN PRN Reason: Pain, Mild (Pain Scale 1-3) Ascorbic Acid (Ascorbic Acid 250 Mg Tablet) 250 mg PO DAILY [facility] Last Admin: 12/14/21 08:16 Dose: 250 mg Documented By: EVERETT Aspirin (Aspirin Enteric Coated 81 Mg Tablet.) 81 mg PO DAILY [facility] Last Admin: 12/14/21 08:16 Dose: 81 mg Documented By: EVERETT Atorvastatin Calcium (Atorvastatin Calcium 80 Mg Tablet) 80 mg PO BEDTIME [facility] Last Admin: 12/13/21 20:51 Dose: 80 mg Documented By: GERARD Clonazepam (Clonazepam 0.5 Mg Tablet) 0.5 mg PO DAILY PRN PRN Reason: Anxiety Clonazepam (Clonazepam 0.5 Mg Tablet) 0.5 mg PO DAILY [facility] Last Admin: 12/14/21 09:28 Dose: 0.5 mg Documented By: EVERETT Docusate Sodium (Docusate Sodium 100 Mg Capsule) 100 mg PO DAILY PRN PRN Reason: Constipation Ergocalciferol (Ergocalciferol (Vitamin D2) 1,250 Mcg Capsule) 1,250 mcg PO [facility] Fluticasone/Vilanterol (Fluticasone/Vilanterol 100/25 Blst.W.Dev) 1 puff INHALE DAILY [facility] Last Admin: 12/14/21 12:17 Dose: Not Given Documented By: DESEAN Non-Admin Reason: Med Not Available Gabapentin (Gabapentin 400 Mg Capsule) 400 mg PO TID [facility] Last Admin: 12/14/21 09:38 Dose: 400 mg Documented By: EVERETT Lamotrigine (Lamotrigine 100 Mg Tablet) 100 mg PO BID [facility] Last Admin: 12/14/21 03:07 Dose: Not Given Documented By: REINIER Non-Admin Reason: Patient Refused Ondansetron HCl (Ondansetron Hcl 4 Mg/2 Ml Vial) 4 mg IVPUSH Q8H PRN PRN Reason: Nausea and Vomiting Pharmacy Consult (Consult Rx Perform Med Rec) 1 each MISCELLANE ONCE PRN PRN Reason: Consult order Tiotropium [place] (Tiotropium [place] 18 Mcg Cap.W.Dev) 1 puff INHALE DAILY [facility] Last Admin: 12/14/21 12:17 Dose: Not Given Documented By: DESEAN Non-Admin Reason: Med Not Available Tramadol HCl (Tramadol Hcl 50 Mg Tablet) 50 mg PO Q6H PRN PRN Reason: Pain, Severe (Pain Scale 7-10) Last Admin: 12/14/21 03:05 Dose: 50 mg Documented By: REINIER Labs CBC & Chem 7: 12/14/21 05:44 12/14/21 05:44 Labs: Laboratory Results - last 24 hr 12/13/21 12/13/21 12/13/21 17:10 17:30 17:30 MCV 98.2 H MCH 31.5 MCHC 32.1 RDW 14.3 Plt Count 295 MPV 10.0 Immature Gran % (Auto) 0.5 H Neut % (Auto) 66.3 Lymph % (Auto) 27.2 [place] % (Auto) 4.5 Eos % (Auto) 0.9 Baso % (Auto) 0.6 Lymph # (Auto) 2.4 [place] # (Auto) 0.4 Eos # (Auto) 0.1 Baso # (Auto) 0.1 Abs Immat Gran (auto) 0.04 H Absolute Neuts (auto) 5.9 Absolute Nucleated RBC 0.000 Nucleated RBC % (auto) 0.0 PT 10.8 INR 0.9 APTT 38.7 H Anion Gap Estim Creat Clear Calc Estimated GFR POC Glucose 87 Random Glucose Calcium Magnesium Total Bilirubin Direct Bilirubin AST ALT Alkaline Phosphatase Total Creatine Kinase Troponin I High Sens Total Protein Albumin Triglycerides Cholesterol LDL Cholesterol, Calc HDL Cholesterol TSH Urine Color Urine Appearance Urine pH Ur Specific [place] Urine Protein Urine Glucose (UA) Urine Ketones Urine Blood Urine Nitrite Ur Leukocyte Esterase Urine RBC Urine WBC Ur Squamous Epith Cells Urine Bacteria Hyaline Casts Ethyl Alcohol COVID-19 ([facility]) COVID-19 Clin Com 12/13/21 12/13/21 12/13/21 17:30 17:30 18:02 MCV MCH MCHC RDW Plt Count MPV Immature Gran % (Auto) Neut % (Auto) Lymph % (Auto) [place] % (Auto) Eos % (Auto) Baso % (Auto) Lymph # (Auto) [place] # (Auto) Eos # (Auto) Baso # (Auto) Abs Immat Gran (auto) Absolute Neuts (auto) Absolute Nucleated RBC Nucleated RBC % (auto) PT INR APTT Anion Gap 15 Estim Creat Clear Calc 51.1 Estimated GFR 50 POC Glucose Random Glucose 82 Calcium 9.1 Magnesium 2.2 Total Bilirubin 0.5 Direct Bilirubin 0.2 AST 10 ALT 6 Alkaline Phosphatase 83 Total Creatine Kinase 46 Troponin I High Sens < 3.5 Total Protein 6.5 Albumin 4.1 Triglycerides Cholesterol LDL Cholesterol, Calc HDL Cholesterol TSH 4.75 H Urine Color Yellow Urine Appearance Clear Urine pH 6.5 Ur Specific [place] 1.020 Urine Protein Negative Urine Glucose (UA) Negative Urine Ketones Negative Urine Blood Negative Urine Nitrite Negative Ur Leukocyte Esterase Trace H Urine RBC 0-2 Urine WBC 0-5 Ur Squamous Epith Cells 0-2 Urine Bacteria None Seen Hyaline Casts 0-2 Ethyl Alcohol < 10 COVID-19 ([facility]) COVID-19 Clin Com 12/13/21 12/14/21 12/14/21 19:23 05:44 05:44 MCV 99.2 H MCH 30.9 MCHC 31.2 RDW 14.2 Plt Count 267 MPV 10.4 Immature Gran % (Auto) 0.3 Neut % (Auto) 52.5 Lymph % (Auto) 37.4 [place] % (Auto) 7.2 Eos % (Auto) 1.9 Baso % (Auto) 0.7 Lymph # (Auto) 2.7 [place] # (Auto) 0.5 Eos # (Auto) 0.1 Baso # (Auto) 0.1 Abs Immat Gran (auto) 0.02 Absolute Neuts (auto) 3.8 Absolute Nucleated RBC 0.000 Nucleated RBC % (auto) 0.0 PT INR APTT Anion Gap 15 Estim Creat Clear Calc 56.7 Estimated GFR 56 POC Glucose Random Glucose 88 Calcium 8.8 Magnesium Total Bilirubin Direct Bilirubin AST ALT Alkaline Phosphatase Total Creatine Kinase Troponin I High Sens Total Protein Albumin Triglycerides Cholesterol LDL Cholesterol, Calc HDL Cholesterol TSH Urine Color Urine Appearance Urine pH Ur Specific [place] Urine Protein Urine Glucose (UA) Urine Ketones Urine Blood Urine Nitrite Ur Leukocyte Esterase Urine RBC Urine WBC Ur Squamous Epith Cells Urine Bacteria Hyaline Casts Ethyl Alcohol COVID-19 ([facility]) Negative COVID-19 Clin Com See Note 12/14/21 12/14/21 05:44 07:26 MCV MCH MCHC RDW Plt Count MPV Immature Gran % (Auto) Neut % (Auto) Lymph % (Auto) [place] % (Auto) Eos % (Auto) Baso % (Auto) Lymph # (Auto) [place] # (Auto) Eos # (Auto) Baso # (Auto) Abs Immat Gran (auto) Absolute Neuts (auto) Absolute Nucleated RBC Nucleated RBC % (auto) PT INR APTT Anion Gap Estim Creat Clear Calc Estimated GFR POC Glucose Cancelled Random Glucose Calcium Magnesium Total Bilirubin Direct Bilirubin AST ALT Alkaline Phosphatase Total Creatine Kinase Troponin I High Sens Total Protein Albumin Triglycerides 204 Cholesterol 241 LDL Cholesterol, Calc 173 HDL Cholesterol 28 TSH Urine Color Urine Appearance Urine pH Ur Specific [place] Urine Protein Urine Glucose (UA) Urine Ketones Urine Blood Urine Nitrite Ur Leukocyte Esterase Urine RBC Urine WBC Ur Squamous Epith Cells Urine Bacteria Hyaline Casts Ethyl Alcohol COVID-19 ([facility]) COVID-19 Clin Com Assessment and Plan (1) Left-sided weakness: Status: Acute (2) COPD exacerbation: Status: Acute Plan is a 61-year-old female with past medical history of CVA presents to the hospital with left-sided week Left side weakness onset 2-[address] head and CT angiogram of the head and neck are negative Brain MRI negative for acute stroke - continue aspirin and statin - neurology consult pending - PT OT eval pending COPD exacerbation wheezing on exam, no change in baseline cough - continue Spiriva, Breo - systemic steroids - p.r.n. breathing treatments - wean oxygen as tolerated peripheral neuropathy Continue gabapentin mood continue baseline medication DVT prophylaxis: scds attending - dr. mishra patient requires ongoing inpatient hospitalization for evaluation of left-sided weakness by Neurology as well as physical therapy for safe disposition Quality Stroke Does the patient have a stroke diagnosis?: No VTE Prior VTE?: No VTE Risk Level:: Medical - moderate - high VTE Device Contraindication: Treatment Not Indicated VTE Drug Contraindication: N/A - Med Ordered
[2021-12-14] MEDS: lamoTRIgine 100 MG TABLET PO ×2 (14:03→20:36)
[2021-12-14] MEDS: methylPREDNISolone Sod Succ 40 MG/ML VIAL IVPUSH (14:03)
[2021-12-14 16:00] VITALS: BP 120/57; PULSE 59; RESP 16; TEMP 36.7; O2SAT 94
[2021-12-14 19:55] VITALS: BP 124/68; PULSE 58; RESP 16; TEMP 36.7; O2SAT 94
[2021-12-14] MEDS: Atorvastatin Calcium 80 MG TABLET PO (20:37)
[2021-12-15] VITALS (7 sets, daily range): BP systolic 94–107; BP diastolic 47–59; PULSE 54–87; RESP 16–19; TEMP 36.2–37.1; O2SAT 91–95
[2021-12-15] MEDS: methylPREDNISolone Sod Succ 40 MG/ML VIAL IVPUSH (01:25)
[2021-12-15] MEDS: ondansetron HCL 4 MG/2 ML VIAL IVPUSH ×2 (01:26→21:00)
[2021-12-15 07:24] LABS: Glucose, Whole Blood 145 mg/dL (60-115)
--- NOTE | 2021-12-15 09:00 | PC.NURSE ---
pt seen by physical therapy this morning. physical therapist recommended short term rehab. Radha Mata at bedside.
[2021-12-15] MEDS: Gabapentin 400 MG CAPSULE PO ×3 (09:46→20:54)
[2021-12-15] MEDS: Aspirin Enteric Coated 81 MG TABLET.DR PO (09:46)
[2021-12-15] MEDS: lamoTRIgine 100 MG TABLET PO ×2 (09:46→20:54)
[2021-12-15] MEDS: Ascorbic Acid 250 MG TABLET PO (09:46)
[2021-12-15] MEDS: clonazePAM 0.5 MG TABLET PO ×2 (10:49→16:20)
--- NOTE | 2021-12-15 12:10 | MHC.CM.PN ---
met with pt who lives alone she is agreeable to acute rehab as recommended by pt and ot [facility] choice [facility] she is vx x 4
--- NOTE | 2021-12-15 12:47 | P.CNNE_ITS ---
History of Present Illness Data of Consult Service Date: 12/15/21 Primary Care Provider: Antony Garcia DO, MD HPI Reason for consult: Leg weak 61-year-old female with past medical history of CVA 2 years ago, history of idiopathic hypotension, anxiety, presents to the hospital with complaints of weakness on the left side specially in her leg, she said that she had problem with the left arm before and could not say if that was weak. She noted leg weakness when she tried to walk. There was no pain. At this point she was feeling better or stronger Review of Systems Review of Systems: No recent fall or pain or trauma PMF Past Medical History Medical History Cerebrovascular accident Idiopathic hypotension Family History Family History Father Myocardial infarction Mother No problems noted. Surgical History Surgical History History of endoscopy (~01/15/20) History of thyroidectomy History of transesophageal echocardiography ([facility]) (~09/29/19) Social History Social History Patient Tobacco Use Status: Current everyday Tobacco user Cigarettes Per Day: 2 Advance Directives: Yes Advance Directives Information Provided: No Advance Directives on File: No Patient : No service: No Meds Allergies Allergy/AdvReac Type Severity Reaction Status Date / Time dexamethasone [From DECADRON] Allergy Unknown UNKNOWN Verified 12/13/21 16:31 ketorolac [From TORADOL] Allergy Unknown SEVERE RASH Verified 12/13/21 16:31 mushroom [MUSHROOMS] Allergy Unknown UNKNOWN Verified 12/13/21 16:31 oxcarbazepine Allergy Unknown RASH Verified 12/13/21 16:31 [From TRILEPTAL] prochlorperazine Allergy Unknown SEVERE RASH Verified 12/13/21 16:31 [PROCHLORPERAZINE] shellfish derived Allergy Unknown N/V Verified 12/13/21 16:31 [SHELLFISH DERIVED] SEAFOOD Allergy Unknown N/V Uncoded 12/13/21 16:31 Active Medications: Current Medications Acetaminophen (Acetaminophen 325 Mg Tablet) 650 mg PO Q6H PRN PRN Reason: Pain, Mild (Pain Scale 1-3) Albuterol/Ipratropium (Albuterol/Iprat 2.5/0.5mg 3 Ml Ampul.Neb) 3 ml INHALE RQ6H PRN PRN Reason: Shortness of Breath/Wheezing Ascorbic Acid (Ascorbic Acid 250 Mg Tablet) 250 mg PO DAILY [facility] Last Admin: 12/15/21 09:46 Dose: 250 mg Aspirin (Aspirin Enteric Coated 81 Mg Tablet.Dr) 81 mg PO DAILY [facility] Last Admin: 12/15/21 09:46 Dose: 81 mg Atorvastatin Calcium (Atorvastatin Calcium 80 Mg Tablet) 80 mg PO BEDTIME [facility] Last Admin: 12/14/21 20:37 Dose: 80 mg Clonazepam (Clonazepam 0.5 Mg Tablet) 0.5 mg PO DAILY PRN PRN Reason: Anxiety Clonazepam (Clonazepam 0.5 Mg Tablet) 0.5 mg PO DAILY [facility] Last Admin: 12/15/21 10:49 Dose: 0.5 mg Docusate Sodium (Docusate Sodium 100 Mg Capsule) 100 mg PO DAILY PRN PRN Reason: Constipation Ergocalciferol (Ergocalciferol (Vitamin D2) 1,250 Mcg Capsule) 1,250 mcg PO [facility] Fluticasone/Vilanterol (Fluticasone/Vilanterol 100/25 Blst.W.Dev) 1 puff INHALE DAILY [facility] Last Admin: 12/15/21 07:20 Dose: Not Given Gabapentin (Gabapentin 400 Mg Capsule) 400 mg PO TID [facility] Last Admin: 12/15/21 09:46 Dose: 400 mg Lamotrigine (Lamotrigine 100 Mg Tablet) 100 mg PO BID [facility] Last Admin: 12/15/21 09:46 Dose: 100 mg Methylprednisolone Sodium Succinate (Methylprednisolone Sod Succ 40 Mg/Ml Vial) 40 mg IVPUSH Q12H [facility] Last Admin: 12/15/21 01:25 Dose: 40 mg Ondansetron HCl (Ondansetron Hcl 4 Mg/2 Ml Vial) 4 mg IVPUSH Q8H PRN PRN Reason: Nausea and Vomiting Last Admin: 12/15/21 01:26 Dose: 4 mg Pharmacy Consult (Consult Rx Perform Med Rec) 1 each MISCELLANE ONCE PRN PRN Reason: Consult order Tiotropium [place] (Tiotropium [place] 18 Mcg Cap.W.Dev) 1 puff INHALE DAILY [facility] Last Admin: 12/15/21 07:20 Dose: Not Given Tramadol HCl (Tramadol Hcl 50 Mg Tablet) 50 mg PO Q6H PRN PRN Reason: Pain, Severe (Pain Scale 7-10) Last Admin: 12/14/21 20:38 Dose: 50 mg Home Medications Medication Instructions Recorded Confirmed Last Taken Type ascorbic acid (vitamin C) 250 mg 1 tab PO DAILY 12/13/21 12/13/21 12/13/21 History tablet aspirin 81 mg tablet,delayed 81 mg PO DAILY 12/13/21 12/13/21 12/13/21 History release clonazepam 0.5 mg tablet 0.5 mg PO DAILY PRN Anxiety 12/13/21 12/13/21 12/13/21 History clonazepam 0.5 mg tablet 1 tab PO DAILY 12/13/21 12/13/21 12/13/21 History coenzyme Q10 100 mg capsule 1 cap PO SUWEFR@0900 12/13/21 12/13/21 12/13/21 History ergocalciferol (vitamin D2) 1,250 1 cap PO QWEEK 12/13/21 12/13/21 12/13/21 History mcg (50,000 unit) capsule (Vitamin D2) fluticasone 100 mcg-salmeterol 50 1 puff inhalation BID 12/13/21 12/13/21 12/13/21 History mcg/dose blistr powdr for inhalation (Advair Diskus) gabapentin 400 mg capsule 1 cap PO TID 12/13/21 12/13/21 12/13/21 History lamotrigine 100 mg tablet 1 tab PO BID 12/13/21 12/13/21 12/13/21 History tiotropium bromide 18 mcg capsule 1 cap inhalation DAILY 12/13/21 12/13/21 History with inhalation device (Spiriva with HandiHaler) tramadol 50 mg tablet 1 tab PO Q6H PRN Pain 12/13/21 12/13/21 12/13/21 History Physical Exam Vital Signs: Vital Signs: Last Vital Signs Temp 97.8 F 12/15/21 12:16 Pulse 55 12/15/21 12:16 Resp 16 12/15/21 12:16 BP 94/50 L 12/15/21 12:16 Pulse Ox 95 12/15/21 12:16 O2 Del Method 12/15/21 12:16 O2 Flow Rate 2 12/15/21 00:00 BMI result Body Mass Index 20.0 Neuro: Other: She was alert and awake with normal spontaneity of speech fluency comprehension and affect. There was no pronator drift. There was no sensory extinction. Face was symmetrical. There was no obvious asymmetric weakness of leg. Deep tendon reflexes were absent with flexor plantars speech was normal Results Labs CBC & Chem 7: 12/14/21 05:44 12/14/21 05:44 Labs: MRI of brain did not reveal any acute pathology. Minimal punctate chronic microvascular type pathology was noted Assessment and Plan (1) Left-sided weakness: Status: Acute 61 years old woman with complaint of left leg weakness but no sign of stroke on MRI of brain. Clinically there was no indication of upper motor neuron pathology either. At this time I would recommend involving PT OT and maybe outpatient EMG nerve conduction study to rule out local pathology Procedures Date of Service Date of Service: 12/15/21
--- NOTE | 2021-12-15 12:54 | HO.PM.IMPN ---
Subjective Subjective Date of Service: 12/15/21 Interval History: Follow-up for left-sided weakness MRI negative for CVA still has some difficulty with ambulation due to ankle fracture Review of Systems Review of Systems: Yes all other systems are reviewed and are negative Constitutional Constitutional: Denies chills and Denies fever(s) Cardiovascular Cardiovascular: Denies chest pain, Denies palpitations and Denies dyspnea Respiratory Respiratory: Denies cough and Denies dyspnea Gastrointestinal Gastrointestinal: Denies abdominal pain, Denies nausea and Denies vomiting Endocrine Endocrine: Denies palpitations Physical Exam Vital Signs: Vital Signs: Last Vital Signs Temp 97.8 F 12/15/21 12:16 Pulse 55 12/15/21 12:16 Resp 16 12/15/21 12:16 BP 94/50 L 12/15/21 12:16 Pulse Ox 95 12/15/21 12:16 O2 Del Method 12/15/21 12:16 O2 Flow Rate 2 12/15/21 00:00 BMI result Body Mass Index 20.0 Appearing in no acute distress lung sounds are clear to auscultation heart regular rate rhythm, clear S1, S2 positive bowel sounds, abdomen is soft, nontender neuro patient is alert x3, no focal deficits Objective Data Active Medications Acetaminophen (Acetaminophen 325 Mg Tablet) 650 mg PO Q6H PRN PRN Reason: Pain, Mild (Pain Scale 1-3) Albuterol/Ipratropium (Albuterol/Iprat 2.5/0.5mg 3 Ml Ampul.Neb) 3 ml INHALE RQ6H PRN PRN Reason: Shortness of Breath/Wheezing Ascorbic Acid (Ascorbic Acid 250 Mg Tablet) 250 mg PO DAILY [facility] Last Admin: 12/15/21 09:46 Dose: 250 mg Documented By: NANCY Aspirin (Aspirin Enteric Coated 81 Mg Tablet.) 81 mg PO DAILY [facility] Last Admin: 12/15/21 09:46 Dose: 81 mg Documented By: NANCY Atorvastatin Calcium (Atorvastatin Calcium 80 Mg Tablet) 80 mg PO BEDTIME [facility] Last Admin: 12/14/21 20:37 Dose: 80 mg Documented By: ALEKJ Clonazepam (Clonazepam 0.5 Mg Tablet) 0.5 mg PO DAILY PRN PRN Reason: Anxiety Clonazepam (Clonazepam 0.5 Mg Tablet) 0.5 mg PO DAILY [facility] Last Admin: 12/15/21 10:49 Dose: 0.5 mg Documented By: NANCY Docusate Sodium (Docusate Sodium 100 Mg Capsule) 100 mg PO DAILY PRN PRN Reason: Constipation Ergocalciferol (Ergocalciferol (Vitamin D2) 1,250 Mcg Capsule) 1,250 mcg PO [facility] Fluticasone/Vilanterol (Fluticasone/Vilanterol 100/25 Blst.W.Dev) 1 puff INHALE DAILY [facility] Last Admin: 12/15/21 07:20 Dose: Not Given Documented By: NANCY Non-Admin Reason: Med Not Available Gabapentin (Gabapentin 400 Mg Capsule) 400 mg PO TID [facility] Last Admin: 12/15/21 09:46 Dose: 400 mg Documented By: NANCY Lamotrigine (Lamotrigine 100 Mg Tablet) 100 mg PO BID [facility] Last Admin: 12/15/21 09:46 Dose: 100 mg Documented By: NANCY Methylprednisolone Sodium Succinate (Methylprednisolone Sod Succ 40 Mg/Ml Vial) 40 mg IVPUSH Q12H [facility] Last Admin: 12/15/21 01:25 Dose: 40 mg Documented By: TOREY Ondansetron HCl (Ondansetron Hcl 4 Mg/2 Ml Vial) 4 mg IVPUSH Q8H PRN PRN Reason: Nausea and Vomiting Last Admin: 12/15/21 01:26 Dose: 4 mg Documented By: TOREY Pharmacy Consult (Consult Rx Perform Med Rec) 1 each MISCELLANE ONCE PRN PRN Reason: Consult order Tiotropium [place] (Tiotropium [place] 18 Mcg Cap.W.Dev) 1 puff INHALE DAILY [facility] Last Admin: 12/15/21 07:20 Dose: Not Given Documented By: NANCY Non-Admin Reason: Med Not Available Tramadol HCl (Tramadol Hcl 50 Mg Tablet) 50 mg PO Q6H PRN PRN Reason: Pain, Severe (Pain Scale 7-10) Last Admin: 12/14/21 20:38 Dose: 50 mg Documented By: TOREY Labs CBC & Chem 7: 12/14/21 05:44 12/14/21 05:44 Labs: Laboratory Results - last 24 hr 12/15/21 07:08 POC Glucose 145 H Assessment and Plan (1) Left-sided weakness: Status: Acute (2) COPD exacerbation: Status: Acute Plan 61-year-old female with past medical history of CVA presents to the hospital with left-sided week Left side weakness onset 2-3 days Brain MRI negative for acute stroke continue aspirin and statin neurology recommends outpatient EMG physical therapy evaluation COPD exacerbation. No exacerbation continue Spiriva, Breo prednisone 40mg p.r.n. breathing treatments wean oxygen as tolerated peripheral neuropathy Continue gabapentin mental health Continue home medications DVT prophylaxis: scds attending - dr. Shaikh Full code Disposition. Plan to transfer to rehab once authorization is in place patient requires ongoing inpatient hospitalization for evaluation of left-sided weakness by Neurology as well as physical therapy for safe disposition Quality Stroke Does the patient have a stroke diagnosis?: No VTE Prior VTE?: No VTE Risk Level:: Medical - moderate - high VTE Device Contraindication: Treatment Not Indicated VTE Drug Contraindication: N/A - Med Ordered
--- NOTE | 2021-12-15 13:21 | MHC.CM.PN ---
pt does not qualify for acute rehab referrals made to [facility]
[2021-12-15] MEDS: Acetaminophen 325 MG TABLET 650 MG PO (16:20)
--- NOTE | 2021-12-15 17:36 | PC.NURSE ---
Assumed care at 1500- Patient AAOx3, patient anxious about plan of care. Patient reassured plan, verbalized understanding. Equal strength bilateral arms/legs, speech clear. O2 92% RA, lung sounds inspiratory wheezing throughout. Respiratory called for PRN breathing treatment. VSS. C/O headache, given Tylenol per EMAR. Patient ambulated [address] All needs met at this time.
[2021-12-15] MEDS: Albuterol/Iprat 2.5/0.5MG 3 ML AMPUL.NEB INHALE (17:52)
[2021-12-15] MEDS: Atorvastatin Calcium 80 MG TABLET PO (20:54)
[2021-12-15] MEDS: traMADoL HCL 50 MG TABLET PO (20:54)
--- NOTE | 2021-12-15 21:11 | PC.NURSE ---
Assumed care of patient at 1900, patient is alert and oriented x3, vss. PRN ultram administered for pain in right ankle. PRN zofran administered for nausea. Report given to [facility] RN. Awaiting transport.
[2021-12-16 04:00] VITALS: BP 131/56; PULSE 52; RESP 20; TEMP 37.1; O2SAT 93
[2021-12-16 07:18] VITALS: BP 102/57; PULSE 50; RESP 18; TEMP 36.6; O2SAT 94
[2021-12-16] MEDS: Gabapentin 400 MG CAPSULE PO ×2 (08:34→14:34)
[2021-12-16] MEDS: Ascorbic Acid 250 MG TABLET PO (08:34)
[2021-12-16] MEDS: Aspirin Enteric Coated 81 MG TABLET.DR PO (08:35)
[2021-12-16] MEDS: predniSONE 20 MG TABLET 40 MG PO (08:35)
[2021-12-16] MEDS: lamoTRIgine 100 MG TABLET PO (08:36)
[2021-12-16] MEDS: Levothyroxine Sodium 88 MCG TABLET PO (10:14)
[2021-12-16] MEDS: traMADoL HCL 50 MG TABLET PO (10:16)
--- NOTE | 2021-12-16 11:21 | MHC.CM.PN ---
Per ROUNDS discussion, Patient will be medically cleared for dc to home today with [facility]. A referral was made to [facility], who has been notified of today's dc. Patient will dc to home today at 2 PM via [facility].
[2021-12-16 11:27] VITALS: BP 95/52; PULSE 61; RESP 20; TEMP 36.6; O2SAT 92
--- NOTE | 2021-12-16 11:29 | MHC.CM.PN ---
CM has informed Patient's Daughter/Mandy @ [phone] of the dc plan.
--- NOTE | 2021-12-16 11:51 | P.F2F_ITS ---
Service Date Service Date: 12/16/21 Encounter Date of encounter: 12/16/21 Reasons for Services Signs and symptoms assessed: Ankle pain Reason for physical therapy: therapeutic exercises, restore joint function and gait/transfer training Homebound: Leaving the home is medically contraindicated at this time without the asist of a device and/or another person due th the listed conditions above and below. Reason homebound: other (ankle injury ) Certification: Based on the above findings, I certify that this patient is confined to the home and needs intermittent prison care, physical therapy and/or speech therapy, or continues to need occupational therapy. The patient is under my care, and I have initiated the establishment of the plan of care. The patient will be followed by a physician who will periodically review the plan of care.
--- NOTE | 2021-12-16 11:52 | P.DS_ITS ---
DS: Providers Provider Date of Service: 12/16/21 Date of admission: 12/13/21 19:35 Primary care physician: Antony Garcia DO, MD Consults: 12/13/21 19:35 Consult to Neurology Routine Consulting Provider: [facility] Reason for consultation: Stroke Has provider been notified: Yes DS: Diagnosis Discharge Diagnosis (1) Left-sided weakness: Status: Acute (2) COPD exacerbation: Status: Acute DS: Summary Hospital Course Hospital Course: History and physical as per admitting [id number] female with past medical history of CVA 2 years ago, history of idiopathic hypotension, anxiety, presents to the hospital with complaints of weakness on the left side specially in her leg, loss of balance, difficulty ambulating as a result.? as well as disorganized thought and foggy mind. She reports that she noticed her symptoms? Started likely about 2-3 days ago.? She reports that she has difficulty processing her thoughts or when people talk to her.? She had difficulty making food for her cats.? She reports worsening weakness in her left lower extremity, with no resolution at this time.? she reports a headache for the past 2 days.? She denies any change in vision, no change in speech although she does have difficulty finding some words, she denies any chest pain, no shortness of breath, no palpitations, no abdominal pain nausea or vomiting, no diarrhea or constipation, no urinary symptoms and no lower extremity edema.?On arrival to the ED patient hemodynamically stable no significant abnormal vitals Labs are significant for? WBC count of 8.9, labs otherwise unremarkable, head CT and CT angiogram shows no arterial high-grade stenosis or large vessel occlusion in the head or neck, and no acute intracranial pathology. Patient will be admitted for further management Left side weakness. Resolved onset 2-3 days Brain MRI negative for acute stroke continue aspirin and statin neurology recommends outpatient EMG physical therapy evaluation COPD exacerbation.? No exacerbation continue Spiriva, Breo prednisone 40mg completed p.r.n. breathing treatments peripheral neuropathy Continue gabapentin mental health Continue home medications Hx of right ankle fracture PT at home Time Spent with Patient Time attestation: Total time spent providing and/or coordinating discharge services: Discharge coordination time: Greater than 30 minutes Quality: Safe Use of Opioids Does Pt have an Active Cancer Diagnosis on the Problem List?: No Quality: Stroke Does the patient have a stroke diagnosis?: No Physical Exam Vital Signs: Vital Signs: Last Vital Signs Temp 98 F 12/16/21 11:27 Pulse 61 12/16/21 11:27 Resp 20 12/16/21 11:27 BP 95/52 L 12/16/21 11:27 Pulse Ox 92 12/16/21 11:27 O2 Del Method 12/16/21 11:27 O2 Flow Rate 2 12/15/21 00:00 BMI result Body Mass Index 20.0 Appearing in no acute distress head is normocephalic atraumatic eyes pupils are PERRLA sclera is anicteric mouth throat mucous membranes are intact and moist neck is supple no lymphadenopathy, no JVD noted lung sounds are clear to auscultation heart regular rate rhythm, clear S1, S2 positive bowel sounds, abdomen is soft, nontender neuro patient is alert x3, no focal deficits Discharge Plan Discharge Anticipated Discharge Date/Time: 12/16/21 11:44 Patient Disposition: Home Health Service Discharge Diagnosis: left-sided weakness COPD exacerbation Referrals: Megan CALLAWAY [Outside] - 1 Week Antony Garcia DO, MD [Primary Care Provider] - 1 Week Discharge Medications: Continued clonazepam 0.5 mg tablet 0.5 mg PO DAILY PRN (Reason: Anxiety) gabapentin 400 mg capsule 1 cap PO TID tramadol 50 mg tablet 1 tab PO Q6H PRN (Reason: Pain) ascorbic acid (vitamin C) 250 mg tablet 1 tab PO DAILY ergocalciferol (vitamin D2) [Vitamin D2] 1,250 mcg (50,000 unit) capsule 1 cap PO QWEEK fluticasone propion-salmeterol [Advair Diskus] 100-50 mcg/dose blister with device 1 puff inhalation BID lamotrigine 100 mg tablet 1 tab PO BID coenzyme Q10 100 mg capsule 1 cap PO SUWEFR@0900 Rx Instructions: take with statin Spiriva with HandiHaler 18 mcg capsule, w/inhalation device 1 cap inhalation DAILY clonazepam 0.5 mg tablet 1 tab PO DAILY aspirin 81 mg Tablet,Delayed Release (Dr/Ec) 81 mg PO DAILY levothyroxine 88 mcg Tablet 88 mcg PO DAILY Discharge Orders: Discharge Order (Routine); Ordered 12/16/21 Ordered By: Radha Mata Diet: Advance to usual diet Activity on Discharge: As tolerated Stand Alone Forms: Patient Portal Discharge page Care Plan Goals: in-home physical therapy Health Concerns: left-sided weakness COPD exacerbation Plan of Treatment: follow-up with primary care provider as needed Assessment: see discharge summary
[2021-12-16] MEDS: clonazePAM 0.5 MG TABLET PO (12:20)
[2021-12-16 15:25] VITALS: BP 109/65; PULSE 54; RESP 18; TEMP 36.8; O2SAT 92
--- NOTE | 2021-12-16 16:25 | PC.NURSE ---
Alert and oriented. Denies pain, VSS, afebrile, no acute resp. distress noted. New order to discharge patient home today with VNA services. Went over discharge paper work, follow up apt and medication administrations with patient. Verbalized undesrtanding back. Report given to administrative support assoc. Left via stretcher accompanied by 2 administrative support assoc.
== END 2021-12-16 16:00 | disposition home health service (06) ==
LOC: HO.ED 19:20 → HO.EDOVER 19:46 → HO.IMC 12-15 18:07
PROVIDERS: Emergency Medicine; Physician Assistant Medical; Admitting Provider Internal Medicine; Emergency Provider Internal Medicine; PCP Internal Medicine; Visit Provider Nurse Practitioner Acute Care
DX: I69.351 Hemiplegia and hemiparesis following cerebral infarction affecting right dominant side (principal); R53.1 Weakness; J44.1 Chronic obstructive pulmonary disease with (acute) exacerbation; G62.9 Polyneuropathy, unspecified; I95.0 Idiopathic hypotension; F17.210 Nicotine dependence, cigarettes, uncomplicated; Z79.82 Long term (current) use of aspirin; Z79.899 Other long term (current) drug therapy; Z20.822 Contact with and (suspected) exposure to COVID-19; Z23 Encounter for immunization
CPT/HCPCS: 36415; 70450; 70496; 70498; 70551; 71045; 80048; 80061; 80076; 81001; 82077; 82550; 82947; 83735; 84443; 84484; 85025; 85610; 85730; 87635; 90471; 90686; 93005; 94640; 96374; 96375; 96376; 97162; 97166; 97530; 99219; 99285; J2405; J2920; Q9967

== ENCOUNTER 2022-08-10 14:44 | Emergency (ER) | payer OTHER, SELFPAY ==
--- NOTE | ~2022-08-10 | CT_ITS ---
EXAMINATION: CT HEAD WITHOUT CONTRAST CLINICAL INFORMATION: Headache. COMPARISON: Brain MRI from 12/14/2021. TECHNIQUE: Contiguous axial imaging was performed from the skull base to vertex without intravenous administration of contrast. This CT examination was performed using dose optimization techniques as appropriate, variously including the following: *Automated exposure control. *Adjustment of mA and/or kV according to patient size (this includes techniques or standardized protocols for targeted exams where dose is matched to indication/reason for exam; i.e. extremities or head). *Use of iterative reconstruction technique. DLP: 594 mGy-cm FINDINGS: There is no evidence of acute intracranial hemorrhage or edematous territorial infarction. Dowd-white matter differentiation is preserved. A few foci of hypoattenuation in the periventricular and deep white matter are consistent with mild microangiopathy. Proportional prominence of the ventricles and sulcal spaces without evidence of obstructive hydrocephalus. No abnormal mass effect or midline shift. No extra-axial fluid collections. Mild calcific atherosclerotic disease of the intracranial internal carotid arteries. No hyperdense vessel sign. No acute soft tissue or osseous abnormalities. The mastoid air cells and visualized paranasal sinuses are clear. CT/CT head/brain wo IV con IMPRESSION: 1. No evidence of acute intracranial hemorrhage or edematous territorial infarction. 2. Mild underlying microangiopathy and generalized cerebral volume loss.
[2022-08-10 14:53] VITALS: BP 119/59; PULSE 63; RESP 16; TEMP 36.9; O2SAT 90; BMI 20.9
--- NOTE | 2022-08-10 15:31 | ED.HA ---
HPI - Headache General Chief Complaint: Headache Stated Complaint: headaches x 5 hrs, migraines, hist tia per ems Time Seen by Provider: 08/10/22 15:21 Source: patient Mode of arrival: EMS Limitations: no limitations History of Present Illness HPI Narrative: Patient comes to the emergency room complaining left-sided headache that started 9 hours ago. Patient states that she woke up with a headache. Patient states that she has sensitivity to the light. Patient denies any motor weakness. Related Data Home Medications Medication Instructions Recorded Confirmed ascorbic acid (vitamin C) 250 mg 1 tab PO DAILY 12/13/21 12/13/21 tablet aspirin 81 mg tablet,delayed 81 mg PO DAILY 12/13/21 12/13/21 release clonazepam 0.5 mg tablet 0.5 mg PO DAILY PRN Anxiety 12/13/21 12/13/21 clonazepam 0.5 mg tablet 1 tab PO DAILY 12/13/21 12/13/21 coenzyme Q10 100 mg capsule 1 cap PO SUWEFR@0900 12/13/21 12/13/21 ergocalciferol (vitamin D2) 1,250 1 cap PO QWEEK 12/13/21 12/13/21 mcg (50,000 unit) capsule (Vitamin D2) fluticasone 100 mcg-salmeterol 50 1 puff inhalation BID 12/13/21 12/13/21 mcg/dose blistr powdr for inhalation (Advair Diskus) gabapentin 400 mg capsule 1 cap PO TID 12/13/21 12/13/21 lamotrigine 100 mg tablet 1 tab PO BID 12/13/21 12/13/21 tiotropium bromide 18 mcg capsule 1 cap inhalation DAILY 12/13/21 12/13/21 with inhalation device (Spiriva with HandiHaler) tramadol 50 mg tablet 1 tab PO Q6H PRN Pain 12/13/21 12/13/21 levothyroxine 88 mcg tablet 88 mcg PO DAILY 12/15/21 12/15/21 Previous Rx's Medication Instructions Recorded metoclopramide HCl 5 mg tablet 5 mg PO .B.i.d. PRN nausea and 08/10/22 (Reglan) vomiting #6 tabs tramadol 50 mg tablet 50 mg PO BID PRN pain #6 tabs 08/10/22 Allergies Allergy/AdvReac Type Severity Reaction Status Date / Time dexamethasone [From DECADRON] Allergy Unknown UNKNOWN Verified 12/13/21 16:31 ketorolac [From TORADOL] Allergy Unknown SEVERE RASH Verified 12/13/21 16:31 mushroom [MUSHROOMS] Allergy Unknown UNKNOWN Verified 12/13/21 16:31 oxcarbazepine Allergy Unknown RASH Verified 12/13/21 16:31 [From TRILEPTAL] prochlorperazine Allergy Unknown SEVERE RASH Verified 12/13/21 16:31 [PROCHLORPERAZINE] shellfish derived Allergy Unknown N/V Verified 12/13/21 16:31 [SHELLFISH DERIVED] SEAFOOD Allergy Unknown N/V Uncoded 12/13/21 16:31 Review of Systems Review of Systems: Constitutional : No Weight loss, No Fever, No Chills, No Night Sweats, No Fatigue, No Malaise ENT/Mouth : No Hearing loss, No Ear Pain, No Nasal Congestion, No Sinus Pain, No Hoarseness, No sore throat, No Rhinorrhea, No Swallowing Difficulty Eyes: No Eye Pain, No Swelling, No Redness, No Foreign Body, No Discharge, No Vision Changes Cardiovascular : No Chest Pain, No SOB, No Dyspnea on Exertion, No Orthopnea, No Edema, No Palpitations Respiratory : No Cough, No Sputum, No Wheezing, No Smoke Exposure, No Dyspnea Gastrointestinal : No Nausea, No Vomiting, No Diarrhea, No Constipation, No abdominal Pain, No Hematochezia, No Melena Genitourinary : no irregular bleeding, No Dysuria, No Urinary Frequency, No Hematuria, No Urinary Incontinence, No Urgency, No Flank Pain, No Urinary Flow Changes, No Hesitancy Musculoskeletal : No joint pain, No Myalgias, No Joint Swelling Skin : No Skin Lesions, No rash Neuro : No Weakness, No Numbness, No Paresthesias, No Loss of Consciousness, No Dizziness, complaining of left-sided headache Psych : No Anxiety/Panic, No Depression, No SI/HI/AH/VH, No Social Issues, Heme/Lymph: No Bruising, No Bleeding,No Lymphadenopathy Endocrine : No Polyuria, No Polydipsia, No Temperature Intolerance PMFSH Past Medical History Medical History Idiopathic hypotension Surgical History History of endoscopy (~01/15/20) History of thyroidectomy History of transesophageal echocardiography (LILY) (~09/29/19) Family History Family History Father Myocardial infarction Mother No problems noted. Social History Social History Household Members: None Housing: Apartment Do you presently have visiting nurse or other home services: No Patient Tobacco Use Status: Current everyday Tobacco user Tobacco use type: Cigarette Cigarettes Per Day: 4 Second Hand Smoke Exposure: No Advance Directives: Yes Advance Directives on File: Yes Advance Directives Date on File: 12/15/21 service: No Physical Exam Vital Signs: Vital Signs: Last Vital Signs Temp 98.4 F 08/10/22 14:53 Pulse 63 08/10/22 14:53 Resp 16 08/10/22 14:53 BP 119/59 L 08/10/22 14:53 Pulse Ox 90 L 08/10/22 14:53 O2 Del Method Room Air 08/10/22 14:53 BMI result Body Mass Index 20.9 Const: Other: Appearance: Alert. Oriented X3. Seems uncomfortable Eyes: Pupils equal, round and reactive to light. Has photophobia ENT: Pharynx normal. Neck: Normal inspection. Range of motion with flexion and extension, no stiffness, Neck supple. No lymph nodes noted. No crepitus CVS: Normal heart rate and rhythm. Pulses normal. Normal S1 and S2 Respiratory: No respiratory distress. Breath sounds normal. No Wheezing. No rales Abdomen: Soft and nontender. No rigidity. No distention. Skin: Skin warm and dry. Normal skin color. Normal skin turgor. Extremities: No lower extremity edema. No Lacerations. No Rash Neuro: Oriented X 3. No motor deficit. No sensory deficit. Moving all extremities. No slurred speech. CN 2 through 12 grossly intact Psych: calm, cooperative, normal affect NIH Stroke Scale Level of Consciousness: Alert Level of Consciousness Questions: Answers both questions correctly Level of Consciousness Commands: Performs both tasks correctly Best Gaze: Normal Visual: No visual loss Facial Palsy: Normal Motor Arm (Right): No drift Motor Arm (Left): No drift Motor Leg (Right): No drift Motor Leg (Left): No drift Limb Ataxia: Absent Sensory: Normal Best Language: No aphasia Dysarthia: Normal Extinction and Inattention: No abnormality Score: 0 Course Course Course Narrative: -CT of the head pending, patient states that many years ago she started with a headache and had a CVA. Patient has been having a headache now for 9 hours. NIH score is 0 patient took Tylenol and ibuprofen earlier today with no relief. Medications Administered Discontinued Medications Generic Name Dose Route Start Last Admin Trade Name Freq PRN Reason Stop Dose Admin Diphenhydramine HCl 25 mg 08/10/22 15:08/10/22 15:53 Diphenhydramine Hcl 50 Mg/Ml Vial IVPUSH 08/10/22 15:30 25 mg ONCE ONE Administration Sodium Chloride 1,000 mls @ 999 mls/hr 08/10/22 15:08/10/22 16:08 Ns IVCONT 08/10/22 16:29 999 mls/hr .Q1H1M ONE Administration Metoclopramide HCl 10 mg 08/10/22 15:08/10/22 15:52 Metoclopramide Hcl 10 Mg/2 Ml Vial IVPUSH 08/10/22 15:30 10 mg ONCE ONE Administration Morphine Sulfate 4 mg 08/10/22 15:29 08/10/22 15:52 Morphine Sulfate 4 Mg/Ml Cartridge IVPUSH 08/10/22 15:30 4 mg ONCE ONE Administration Protocol Medical Decision Making Medical Decision Making MDM Narrative: -mental condition of CT scan of the head: No intracranial bleed -after the medication, patient states that she is feeling much better, headache 3/10, states that she feels well enough to go home. Radiology Impression Discussion of test interpretation with radiology: I have reviewed the radiologist's reading. Radiologist Impression: FINDINGS: There is no evidence of acute intracranial hemorrhage or edematous territorial infarction. Dowd-white matter differentiation is preserved. A few foci of hypoattenuation in the periventricular and deep white matter are consistent with mild microangiopathy. Proportional prominence of the ventricles and sulcal spaces without evidence of obstructive hydrocephalus. No abnormal mass effect or midline shift. No extra-axial fluid collections. Mild calcific atherosclerotic disease of the intracranial internal carotid arteries. No hyperdense vessel sign. No acute soft tissue or osseous abnormalities. The mastoid air cells and visualized paranasal sinuses are clear. ? CT/CT head/brain wo IV con IMPRESSION: 1.? No evidence of acute intracranial hemorrhage or edematous territorial infarction. 2.? Mild underlying microangiopathy and generalized cerebral volume loss. Discharge Plan Discharge Clinical Impression: Headache Patient Disposition: Home, Self-Care Instructions: Acute Headache (ED) Additional Instructions: Please follow-up with your primary care physician tomorrow. If you have any worsening or new symptoms, please return to the emergency room or call 911 Prescriptions: New metoclopramide HCl [Reglan] 5 mg tablet 5 mg PO .B.i.d. PRN (Reason: nausea and vomiting) Qty: 6 0RF tramadol 50 mg tablet 50 mg PO BID PRN (Reason: pain) Qty: 6 0RF No Action clonazepam 0.5 mg tablet 0.5 mg PO DAILY PRN (Reason: Anxiety) gabapentin 400 mg capsule 1 cap PO TID tramadol 50 mg tablet 1 tab PO Q6H PRN (Reason: Pain) ascorbic acid (vitamin C) 250 mg tablet 1 tab PO DAILY ergocalciferol (vitamin D2) [Vitamin D2] 1,250 mcg (50,000 unit) capsule 1 cap PO QWEEK fluticasone propion-salmeterol [Advair Diskus] 100-50 mcg/dose blister with device 1 puff inhalation BID lamotrigine 100 mg tablet 1 tab PO BID coenzyme Q10 100 mg capsule 1 cap PO SUWEFR@0900 Rx Instructions: take with statin Spiriva with HandiHaler 18 mcg capsule, w/inhalation device 1 cap inhalation DAILY clonazepam 0.5 mg tablet 1 tab PO DAILY aspirin 81 mg Tablet,Delayed Release (Dr/Ec) 81 mg PO DAILY levothyroxine 88 mcg Tablet 88 mcg PO DAILY
[2022-08-10] MEDS: Metoclopramide HCl 10 MG/2 ML VIAL IVPUSH (15:52)
[2022-08-10] MEDS: Morphine Sulfate 4 MG/ML CARTRIDGE IVPUSH (15:52)
[2022-08-10] MEDS: diphenhydrAMINE HCL 50 MG/ML VIAL 25 MG IVPUSH (15:53)
[2022-08-10] MEDS: 0.9 % Sodium Chloride 1,000 ML 999 ML IVCONT (16:08)
== END 2022-08-10 17:33 | disposition home or self-care (01) ==
PROVIDERS: Emergency Provider Emergency Medicine; PCP Internal Medicine
DX: R51.9 Headache, unspecified (principal); F17.210 Nicotine dependence, cigarettes, uncomplicated; Z71.6 Tobacco abuse counseling; Z79.899 Other long term (current) drug therapy
CPT/HCPCS: 70450; 96374; 96375; 99283; 99284; J1200; J2270; J2765

== ENCOUNTER 2024-01-12 10:51 | Outpatient (AMB) | payer OTHER, SELFPAY ==
--- NOTE | 2024-01-12 11:02 | A.OFFVIS_ITS ---
Intake Visit Reasons: bilateral kidney stones Intake Note: New Patient presents for initial visit for bilateral kidney stones Urology Medications: none Blood Thinner: aspirin Livestock Slaughterer Required: No Accompanied by: Self / Same As Patient Allergies dexamethasone [From DECADRON] Allergy (Unknown, Verified 01/12/24 11:10) UNKNOWN ketorolac [From TORADOL] Allergy (Unknown, Verified 01/12/24 11:10) SEVERE RASH mushroom [MUSHROOMS] Allergy (Unknown, Verified 01/12/24 11:10) UNKNOWN oxcarbazepine [From TRILEPTAL] Allergy (Unknown, Verified 01/12/24 11:10) RASH prochlorperazine [PROCHLORPERAZINE] Allergy (Unknown, Verified 01/12/24 11:10) SEVERE RASH shellfish derived [SHELLFISH DERIVED] Allergy (Unknown, Verified 01/12/24 11:10) N/V SEAFOOD Allergy (Unknown, Uncoded 01/12/24 11:10) N/V HPI Comments Details: Arielle is a 63-year-old female patient of Dr. Garcia. She has a PMH of idiopathic hypotension. She presents to the office today as a new patient for nephrolithiasis. In discussion with the patient today she reports having followed up with her PCP for ongoing bilateral flank pain right side greater than left that she had been experiencing at which time an abdominal ultrasound was ordered for further assessment evaluation. These results were reviewed with the patient today. Bilateral kidneys with no hydronephrosis. There are multiple stones present with the largest measuring 0.9 cm in size bilaterally. There are no renal cysts. When asked she continues to experience flank pain right side greater than left. She otherwise denies any bothersome urinary issues. She denies urinary urgency, urinary frequency, incontinence, nocturia, hematuria, dysuria, foul smelling urine, changes to urinary stream, fever, and or chills. She is happy with her current voiding parameters. In office urinalysis results reviewed with the patient today. We discussed at length potential causes of nephrolithiasis. She denies any previous history of nephrolithiasis and or surgical intervention for nephrolithiasis. We discussed obtaining CT KUB for further assessment evaluation to further assess potential intervention. Discussed importance of adequate hydration relation to nephrolithiasis. She otherwise offers no other issues or concerns at this time. [facility] Medical History Idiopathic hypotension Surgical History History of transesophageal echocardiography (LILY) (~09/29/19) History of thyroidectomy History of endoscopy (~01/15/20) Family History Father Myocardial infarction Mother No problems noted. Social History Household Members: None Housing: Apartment Do you presently have visiting nurse or other home services: No Patient Tobacco Use Status: Current everyday Tobacco user Tobacco use type: Cigarette Cigarettes Per Day: 4 Second Hand Smoke Exposure: No Advance Directives Date on File: 12/15/21 service: No Review of Systems Const All systems reviewed & are unremarkable except as noted in HPI and below Physical Exam Const General: cooperative, healthy appearing, comfortable, no acute distress, well developed, alert and awake Orientation/consciousness: patient oriented x3 Limitations: no limitations HEENT Head: Yes normal to inspection, Yes normocephalic and Yes atraumatic Ears: hearing grossly normal bilaterally Eyes General: appearance normal, both eyes and all related structures Neck Neck: Yes normal visual inspection and Yes trachea midline Chest Chest palpation & inspection: normal inspection of the chest Resp Effort & Inspection: normal respiratory effort and able to speak in complete sentences Cardio Rate: regular rate GI Inspection: Yes normal to inspection General: Yes no CVA tenderness Back/Spine/Pelvis Back: no CVA tenderness Skin General skin exam: no rashes or lesions noted Neuro General: patient oriented x3 Extrem General: Yes normal to inspection Psych Appearance: grossly normal and well kempt Mental Status: mental status grossly normal Speech and movement: Normal speech and movement present and Clear speech present Affect: normal affect Attitude: cooperative Thought process: Normal thought process present Thought content: Normal thought content present Insight: Fair insight present (Psych) Judgement: Fair judgement present (Psych) Results AMB Urinalysis, Automated UA Leukoctes 0 Juliana/uL Last Edit by [employer]ul[employer] on 01/12/24 11:14 UA Nitrite Last Edit by Docul[employer] on 01/12/24 11:14 UA Urobilinogen 0.2 mg/dL Last Edit by Docul[employer] on 01/12/24 11:14 UA Protein 15 mg/dL Last Edit by Docul[employer] on 01/12/24 11:14 UA pH 6.0 Last Edit by Docul[employer] on 01/12/24 11:14 UA Blood 0 Leonardo/uL Last Edit by Doculogy on 01/12/24 11:14 UA Specific [place] 1.015 Last Edit by Doculogy on 01/12/24 11:14 UA Ketone Last Edit by Docul[employer] on 01/12/24 11:14 UA Bilirubin 0 mg/dL Last Edit by Doculogy on 01/12/24 11:14 UA Glucose 0 mg/dL Last Edit by Doculogy on 01/12/24 11:14 Results Reviewed Results Reviewed: Laboratory Last Values Urine pH (Auto) 6.0 01/12/24 11:12 Specific [place] (Auto) 1.015 01/12/24 11:12 Urine Protein (Auto) 15 mg/dL 01/12/24 11:12 Glucose (UA)(Auto) 0 mg/dL 01/12/24 11:12 Urine Blood (Auto) 0 Leonardo/uL 01/12/24 11:12 Urine Bilirubin (Auto) 0 mg/dL 01/12/24 11:12 Urine Urobilinogen (Auto) 0.2 mg/dL 01/12/24 11:12 Leukocyte Esterase (Auto) 0 Juliana/uL 01/12/24 11:12 Assessment & Plan Assessment & Plan (1) Nephrolithiasis: Code(s): N20.0 - Calculus of kidney Category: Medical (2) Flank pain: Code(s): R10.9 - Unspecified abdominal pain Category: Medical Plan In office urinalysis results reviewed with the patient today; as noted above. Discussed potential causes of nephrolithiasis. Will obtain CT KUB for further assessment evaluation. Recent abdominal ultrasound results reviewed with the patient today; as noted above. Discussed, educated, and stressed the importance of adequate hydration in relation to nephrolithiasis as well as overall health and wellbeing. She denies any bothersome urinary issues. She reports be happy with current voiding parameters. Follow-up once imaging is completed; or sooner with any issues, concerns, and or questions. Orders: Orders CT kidney stone Today N20.0 - Calculus of kidney, R10.9 - Unspecified abdominal pain AMB Urinalysis Automated Today Z13.9 - Encounter for screening, unspecified Patient Instructions: The patient had an opportunity to ask questions regarding the treatment plan. All questions were answered. Physical exam, labs, and imaging were discussed and reviewed in detail. As well as risks, benefits, and discussion of treatment choices. No major barriers to understanding were identified. The patient expressed understanding and agreement with the above treatment plan. The patient was made aware they should contact our office by phone for worsening of their current condition, the appearance of new symptoms, or with any questions or concerns. Compliance is encouraged with any medications and follow up testing that is ordered. It is a privilege to be allowed the opportunity to participate in? your urological care.? Again, if you have any questions or concerns If you have any questions or concerns please do not hesitate to contact me. The office is [phone]. This note is constructed using voice recognition software. While every effort has been made to ensure accuracy hoop machine operator errors may have been included. Yours sincerely, SARA Leigh Coding Level of Care Code New Pt Level 3 (17137) Diagnoses Nephrolithiasis N20.0 Flank pain R10.9
== END 2024-01-12 11:34 | disposition home or self-care (01) ==
LOC: HO.HUSH 10:51
PROVIDERS: PCP Internal Medicine; Visit Provider Nurse Practitioner Family
DX: N20.0 Calculus of kidney (principal); R10.9 Unspecified abdominal pain; Z13.9 Encounter for screening, unspecified
CPT/HCPCS: 99203

== ENCOUNTER → 2024-01-12 10:51 | Outpatient (BNVA) | payer OTHER, SELFPAY | PROVIDERS: PCP Internal Medicine; Visit Provider Nurse Practitioner Family | DX: N20.0 Calculus of kidney (principal); R10.9 Unspecified abdominal pain | CPT/HCPCS: 81003; 99202 ==

== ENCOUNTER 2024-04-06 08:21 | Outpatient (REF) | payer OTHER, SELFPAY ==
--- NOTE | ~2024-04-06 | CT_ITS ---
CLINICAL HISTORY: R10.9 - Unspecified abdominal pain CT abdomen and pelvis without contrast Comparison: None Findings: The lung bases are clear. Unremarkable gallbladder and solid organs. Bilateral renal parenchymal calculi No bowel obstruction, pneumoperitoneum, or pneumatosis. Pelvic contents unremarkable. The appendix is not visualized with no imaging evidence of appendicitis. No acute fracture. IMPRESSION: No acute findings. This document has been electronically signed by: Yon Simmons MD on 04/07/2024 08:20:27
== END 2024-04-06 08:22 | disposition home or self-care (01) ==
LOC: HO.CT 08:21
PROVIDERS: PCP Internal Medicine; Visit Provider Nurse Practitioner Family
DX: N20.0 Calculus of kidney (principal); R10.9 Unspecified abdominal pain
CPT/HCPCS: 74176

== ENCOUNTER → 2024-04-06 08:23 | Outpatient (BNV) | payer OTHER, SELFPAY | PROVIDERS: PCP Internal Medicine; Visit Provider Specialist | DX: R10.9 Unspecified abdominal pain (principal) | CPT/HCPCS: 74176 ==

== ENCOUNTER 2024-10-09 12:04 | Outpatient (REF) | payer OTHER, SELFPAY ==
--- NOTE | ~2024-10-09 | US_ITS ---
EXAMINATION: US KIDNEY BILATERAL HISTORY: N20.0 - Calculus of kidney TECHNIQUE: Real-time grayscale ultrasound imaging of the kidneys was performed and images were reviewed. COMPARISON: Correlation is made with an unenhanced CT of the abdomen dated 04/06/2024. FINDINGS: Right kidney: The right kidney measures 10.1 x 4.9 x 3.6 cm. Renal parenchymal echotexture and thickness are normal. There are no masses. There are multiple calculi in the interpolar region measuring up to 6 mm in size. There is no hydronephrosis. Left Kidney: The left kidney measures 9.8 x 4.1 x 3.7 cm. Renal parenchymal echotexture and thickness are normal. There are no masses. There are multiple calculi in the mid to lower pole regions measuring up to 6 mm in size. There is no hydronephrosis. US/US renal BI IMPRESSION: Bilateral nephrolithiasis as described. Electronically signed by: Reji Molina MD 10/09/2024 01:10 PM EDT
--- OUTSIDE RECORDS SUMMARY | 2024-10-09 13:07 | XMS_ITS | Encounter Summary ---
Author Organization [facility] Address [address] [place] [address] Phone Care Team Providers Care Asic Design Engineer Name Role Phone MiguelitoAntony shane Primary Care Provider [phone] Encounter Details Date Type Department Care Team (Late st Contact Info) Description 01/03/2023 Procedure [facility], Ct Scan - [facility] [address] [place] [address] Social History Tobacco Use Types Packs/Day Years Used Date Smoking Tobacco: Every Day Cigarettes 0.5 35 Smokeless Tobacco: Never Alcohol Use Standard Drinks/Week Comments No 0 (1 standard drink = 0.6 oz pur e alcohol) Education Answer Date Recorded Are you interested in more education? Not on francesca e 07/10/2022 Are you concerned about learning? Not on file 07/10/2022 No 07/10/2022 No 07/10/2022 Digital Access Answer Date Recorded No 08/08/2022 No 08/08/2022 Reliable internet access at home? Not on file 08/08/2022 Device with a working camera? Not on file Intimate Partner Violence Answer Date R ecorded Are you denied basic needs s uch as food, clothing, or medical care? No 01/03/2023 In the past 12 months have y ou been in a relationship with a person who hurts, threatens, or tries to control you? No 01/03/2023 Are you denied basic needs s uch as food, clothing, or medical care? No 01/03/2023 In the past 12 months have y ou been in a relationship with a person who hurts, threatens, or tries to control you? No 01/03/2023 Comments No Sex and Gender Information Value Date Recorded Sex Assigned at Female 08/04/2018 1:28 PM EDT Legal Sex Female 9:56 AM EST Gender Identity Female 08/04/2018 1:28 PM EDT Sexual Orientation Not on file documented as of this encounter Functional Status * Calculated C-SSRS Risk Score (Lifetime/Recent) Answer Date of Assessment Author No Risk Indicated 01/03/2023 6:37 PM EDT Nichole Agustin RN * Stone Suicide Severity Rating Scale (Screener/Recent Self-Report) Question Answer Date of Assessment Author 1. Wish to be (Past 1 Month) No 023 6:37 PM EDT Nichole Agustin RN 2. Non-Specific Active Suici savanna Thoughts (Past 1 Month) No 01/03/2023 6:37 PM EDT Nichole Agustin RN 6. Suicidal Behavior (Lifetime) No 6:37 PM EDT Nichole Agustin RN documented as of this encounter Plan of Treatment Not on file documented as of this encounter Visit Diagnoses Not on filedocumented in this encounter Care Teams Asic Design Engineer Relationship Specialty Start Date End Date Antony Garcia DO [address] [place] [id number] PCP - General Internal Medicine 03/11/17 documented as of this encounter Additional Source Comments The information contained in this document represents components of the legal health record. It is not the complete legal health record.[facility]
--- OUTSIDE RECORDS SUMMARY | 2024-10-09 13:07 | XMS_ITS | Clinical Summary ---
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 Active ascorbic acid (VITAMIN C) 250 mg tablet Take 1 tablet (250 mg total) by mouth 1 (one) time each day. Active aspirin 81 mg EC tablet Take 1 tablet (81 mg total) by mouth 1 (one) time each day. Active clonazePAM (KlonoPIN) 0.5 mg tablet Take 1 tablet (0.5 mg total) by mouth 1 (one) time each day. Active ezetimibe (ZETIA) 10 mg tablet Take 1 tablet (10 mg total) by mouth 1 (one) time each day. Active fluticasone propion-salmete roL (ADVAIR DISKUS) 100-50 mcg/dose diskus inhaler Inhale into the lungs. Active gabapentin (NEURONTIN) 400 mg capsule Take 1 Capsule by mouth 3 times daily. Active lamoTRIgine (LaMICtal) 100 mg tablet Take 1 tablet (100 mg total) by mouth 1 (one) time each day. Active levothyroxine (SYNTHROID, LEVOTHROID) 88 mcg tablet Take 1 tablet (88 mcg total) by mouth 1 (one) time each day. Active rosuvastatin (CRESTOR) 10 mg tablet Take 1 Tablet by mouth at bedtime. Active tiotropium (SPIRIVA) 18 mcg per inhalation capsule Inhale 1 Capsule into the lungs daily. Inhale the contents of one capsule through the Spiriva device every AM Active calcium citrate-vitamin D3 (CALTRATE MAXIMUM) 315 mg-6.25 mcg (250 unit) per tablet Take 2 tablets by mouth. 3 Active Vitamin D3 50 mcg (2,000 unit) capsule 4 Active ketamine HCl in 0.9 % NaCl (ketamine in 0.9 % sod chloride) 0.6 mg/mL solution 84 Doses by Intrasinal route 1 (one) time per week. Max Daily Amount: 84 Doses Active teriparatide (FORTEO SUBQ) Inject under the skin. Active lidocaine (LIDODERM) 5 % patch Place 1 patch on the skin 1 (one) time each day at the same time. 3 Active hydrocortisone 0.5 % topical cream Apply topically if needed. 3 Active Active Problems Problem Noted Date Diagnosed Date Chronic obstructive pulmonar y disease ([facility] V24, [facility] V28) 01/21/2024 Anemia 01/21/2024 CVA (cerebral vascular accident) ([facility], [facility] V28) 01/21/2024 Encounters Date Type Department Care Team Description 09/18/2024 1:53 PM EDT - 09/18/2024 11:59 PM EDT Hospital Encounter [facility] Xray [address] [place] [address] Low back pain, unspecified Discharge Disposition: Home or Self Care from Last 3 Months Surgical History Surgery Date Site/Laterality Comments THYROIDECTOMY Medical History Medical History Date Comments Hyperlipidemia Osteoporosis COPD (chronic obstructive pulmonary disease) ([facility]/HCC V24, [facility] V28) Anemia CVA (cerebral vascular accident) ([facility] V24, [facility] V28) Neuropathy B12 deficiency Orthostatic hypotension Depression Social History Tobacco Use Types Packs/Day Years Used Date Smoking Tobacco: Every Day Cigarettes Tobacco Cessation:Ready to Q uit: Not Asked; Counseling Given: Not Answered Alcohol Use Standard Drinks/Week Comments Never 0 (1 standard drink = 0.6 oz pur e alcohol) Interpersonal Safety Answer Date Record ed Physical Abuse 01/21/2024 Verbal Abuse 01/21/2024 Comments No Sex and Gender Information Value Date Recorded Sex Assigned at Female 01/21/2024 10:52 AM EST Legal Sex Female 11:59 AM EST Gender Identity Female 01/21/2024 10:52 AM EST Sexual Orientation Straight 01/21/2024 10 :52 AM EST Obstetrics History Last Filed Vital Signs Vital Sign Reading Time Taken Comments Blood Pressure 92/55 01/21/2024 1:35 PM EST Pulse 69 01/21/2024 1:35 PM EST Temperature - - Respiratory Rate 14 02/04/2024 2:52 PM EST Oxygen Saturation 93% 01/21/2024 1:35 PM EST Inhaled Oxygen Concentration - - Weight 54.4 kg (120 lb) 02/04/2024 2:52 PM EST Height 170.2 cm (5' 7 ) 02/04/2024 2:52 PM EST Body Mass Index 18.79 02/04/2024 2:52 PM EST Plan of Treatment Health Maintenance Due Date Last Done Comments DTaP,Tdap,and Td Vaccines (1 - Tdap) 1981 Cervical Cancer Screening: Pap Smear 08/13/1983 Pneumococcal Vaccine: 50+ Years (2 of 2 - PCV) 04/09/2015 04/09/2014 HIV Screening 02/10/2022 Hepatitis C Screening 02/10/2022 Social Influencers of Health Screening 02/10/2022 RSV Immunization Adult Patients (1 - Risk 60-74 years 1-dose series) 2022 COVID-19 Vaccine ( season) 2023 09/18/2021, 02/16/2021, 07/30/2020, Additional history exists Depression Screening 03/15/2024 Influenza Vaccine (#1) 2024 2, 03/19/2015, 04/09/2014, Additional history exists Breast Cancer Screening 10/14/2025 10/15/19 24, 09/09/2020, 01/21/2018 Cholesterol Screening (Lipid Panel) 08/28/2029 08/28/2024, 03/23/2024 Osteoporosis Screening (Bone Density Screening) 02/02/2033 02/02/2023, 09/09/2020 Colorectal Cancer Screening: Colonoscopy 01/20/2034 01/21/2024 Zoster Vaccines Completed 08/25/2022, 09/18/2021 HIB Vaccines Aged Out No longer eligi ble based on patient's age to complete this topic HPV Vaccines Aged Out No longer eligi ble based on patient's age to complete this topic Hepatitis A Vaccines Aged Out No long er eligible based on patient's age to complete this topic Hepatitis B Vaccines Aged Out No long er eligible based on patient's age to complete this topic IPV Vaccines Aged Out No longer eligi ble based on patient's age to complete this topic MMR Vaccines Aged Out No longer eligi ble based on patient's age to complete this topic Meningococcal ACWY Vaccine Aged Out N o longer eligible based on patient's age to complete this topic Meningococcal B Vaccine Aged Out No l onger eligible based on patient's age to complete this topic RSV Immunization Patients Under 20 months Aged Out No longer eligible based on patient's age to complete this topic Varicella Vaccines Aged Out No longer eligible based on patient's age to complete this topic Procedures Procedure Name Priority Date/Time Associated Diagnosis Comments XR LUMBAR SPINE 2-3 VIEWS Routine 09/18/2024 2:05 PM EDT Low back pain, unspecified CBC WITH AUTO DIFFERENTIAL Routine 08/28/2024 2:11 PM EDT Laboratory tests ordered as part of a complete physical exam (CPE) Osteoporosis Hypothyroid VITAMIN B12 Routine 08/28/2024 2:11 PM EDT Laboratory tests ordered as part of a complete physical exam (CPE) Osteoporosis Hypothyroid VITAMIN D 25 HYDROXY Routine 08/28/2024 2:11 PM EDT Laboratory tests ordered as part of a complete physical exam (CPE) Osteoporosis Hypothyroid HEMOGLOBIN A1C Routine 08/28/2024 2:11 PM EDT Laboratory tests ordered as part of a complete physical exam (CPE) Osteoporosis Hypothyroid CBC AND DIFFERENTIAL Routine 08/28/2024 2:11 PM EDT Laboratory tests ordered as part of a complete physical exam (CPE) Osteoporosis Hypothyroid THYROID STIMULATING HORMONE Routine 08/28/2024 2:11 PM EDT Laboratory tests ordered as part of a complete physical exam (CPE) Osteoporosis Hypothyroid LIPID PANEL WITH REFLEX TO DIRECT LDL Routine 08/28/2024 2:11 PM EDT Laboratory tests ordered as part of a complete physical exam (CPE) Osteoporosis Hypothyroid COLONOSCOPY Routine 01/21/2024 1:24 PM EST Encounter for screening for malignant neoplasm of colon RETA SCREENING DIGITAL Routine 10/15/2023 1:44 PM EDT Encounter for screening mammogram for malignant neoplasm of breast [facility] DEXA AXIAL SKELETON Routine 02/02/2023 11:45 AM EST Age-related osteoporosis without current pathological fracture from Last 3 Months or Most Recently Relevant to Health Maintenance Results * XR Lumbar Spine 2-3 Views (09/18/2024 2:05 PM EDT) Anatomical Region Laterality Modality Spine, L-spine Radiographic Karime ging 09/19/2024 8:04 AM EDT Impressions 09/19/2024 8:07 AM EDT No acute findings in the lumbar spine. Bony demineralization. Schmorl's nodes are present at the superior and inferior endplates of L4. Degenerative disc disease is present at the L2-3, L3-4, and L5-S1 levels. Facet joint disease is present at L4-5 and L5-S1. There is evidence of constipation. Code 02424 -------- FINAL REPORT -------- Dictated By: Tremayne Post Dictated Date: 09/19/2024 08:04 ET Assigned Physician: Tremayne Post Reviewed and Electronically Signed By: Tremayne Post Signed Date: 09/19/2024 08:07 ET Workstation ID: [id number] Transcribed By: Self Edit Transcribed Date: 09/19/2024 08:04 ET Narrative 09/19/2024 8:07 AM EDT HISTORY: The patient is a 64-year-old female with low back pain. No history of trauma is provided. FINDINGS: AP, lateral, and coned-down spot lateral views of the lumbosacral spine are obtained. No prior study is available for comparison. The study demonstrates bony demineralization. The alignment of the bony structures is anatomic. Schmorl's node are present at the superior and inferior endplates of L4. Otherwise, no fracture is seen. There is narrowing of the L2-3, L3-4, and L5-S1 disc spaces consistent with degenerative disc disease. The remaining disc spaces are well-maintained. Facet joint disease is noted at the L4-5 and L5-S1 levels. Atherosclerotic arterial calcification are present. A large amount of fecal material is noted in the colon and transverse colon consistent with constipation. Procedure Note Tremayne Post MD - 09/19/2024 HISTORY: The patient is a 64-year-old female with low back pain. Nohistory of trauma is provided. FINDINGS: AP, lateral, and coned-down spot lateral views of thelumbosacral spine are obtained. No prior study is available forcomparison. The study demonstrates bony demineralization. The alignment ofthe bony structures is anatomic. Schmorl's node are present at thesuperior and inferior endplates of L4. Otherwise, no fracture is seen.There is narrowing of the L2-3, L3-4, and L5-S1 disc spaces consistentwith degenerative disc disease. The remaining disc spaces arewell-maintained. Facet joint disease is noted at the L4-5 and L5-E3ygoced. Atherosclerotic arterial calcification are present. A large amount offecal material is noted in the colon and transverse colon consistent withconstipation. IMPRESSION: No acute findings in the lumbar spine. Bony demineralization. Schmorl'snodes are present at the superior and inferior endplates of L4.Degenerative disc disease is present at the L2-3, L3-4, and L5-S1 levels.Facet joint disease is present at L4-5 and L5-S1. There is evidence ofconstipation. Code 24219 -------- FINAL REPORT -------- Dictated By: Tremayne Post Dictated Date: 09/19/2024 08:04 ET Assigned Physician: Tremayne Post Reviewed and Electronically Signed By: Tremayne Post Signed Date: 09/19/2024 08:07 ET Workstation ID: [id number] Transcribed By: Self Edit Transcribed Date: 09/19/2024 08:04 ET us Antonybob Mederos DO IMG XR PROCEDURES Final Resul t * (ABNORMAL) Lipid panel with reflex to direct LDL (08/28/2024 2:11 PM EDT) Cholesterol 168 0 - 200 mg/dL LAB CHEMISTRY METHOD 08/28/2024 4:58 PM EDT [facility] Triglycerides 121 0 - 150 mg/dL LAB CHEMISTRY METHOD 08/28/2024 4:58 PM EDT [facility] HDL 43 >=40 mg/dL LAB CHEMISTRY METHOD 08/28/2024 4:58 PM EDT [facility] LDL Calculated 101(H) 0 - 100 mg/dL LAB CHEMISTRY METHOD 08/28/2024 4:58 PM EDT [facility] VLDL Cholesterol Jamal 24.2 mg/dL LAB CHEMISTRY METHOD 08/28/2024 4:58 PM EDT [facility] Non HDL Chol. (LDL+VLDL) 125 <145 mg/dL LAB CHEMISTRY METHOD 08/28/2024 4:58 PM EDT [facility] Chol/HDL Ratio 3.9 0.0 - 4.4 LAB CHEMISTRY METHOD 08/28/2024 4:58 PM EDT [facility] Blood Venous blood specimen / Unknown Venipuncture / Unknown 08/28/2024 2:11 PM EDT 08/28/2024 2:11 PM EDT Galdino Coreas LAB BLOOD ORDERABLES Final Resul t [facility] [address] [place] [address], [place] [phone] * (ABNORMAL) CBC auto differential (08/28/2024 2:11 PM EDT) [facility] WBC 11.3(H) 4.8 - 10.8 K/mcL LAB HEMETOLOGY METHOD 08/28/2024 3:16 PM EDT [facility] RBC 4.10 3.80 - 4.80 M/mcL LAB HEMETOLOGY METHOD 08/28/2024 3:16 PM EDT [facility] Hemoglobin 13.8 11.5 - 16.0 g/dL LAB HEMETOLOGY METHOD 08/28/2024 3:16 PM EDT [facility] Hematocrit 42.7 35.0 - 47.0 % LAB HEMETOLOGY METHOD 08/28/2024 3:16 PM EDT [facility] MCV 104.9(H) 79.0 - 98.0 FL LAB HEMETOLOGY METHOD 08/28/2024 3:16 PM EDT [facility] MCH 33.9(H) 27.0 - 32.0 pcg LAB HEMETOLOGY METHOD 08/28/2024 3:16 PM EDT [facility] MCHC 32.3 32.0 - 37.0 g/dL LAB HEMETOLOGY METHOD [facility]/28[facility]2024 [facility] RDW 12.4 11.0 - 15.0 % LAB HEMETOLOGY METHOD 08/28/2024 3:16 PM EDT [facility] Platelets 260 130 - 400 K/mcL LAB HEMETOLOGY METHOD 08/28/2024 3:16 PM EDT [facility] MPV 10.4 7.0 - 11.0 FL LAB HEMETOLOGY METHOD 08/28/2024 3:16 PM EDT [facility] NRBC 0.0 <1.0 % LAB HEMETOLOGY METHOD 08/28[facility]2024 3:[facility] NRBC Absolute 0.00 <0.10 K/mcL LAB HEMETOLOGY METHOD 08/28/2024 3:[facility] Neutrophils Relative 70.3 % LAB HEMETOLOGY METHOD 08/28/2024 3:16 PM [facility] Lymphocytes Relative 22.7 % LAB HEMETOLOGY METHOD 08/28/2024 3:16 PM [facility] Monocytes Relative 5.7 % LAB HEMETOLOGY METHOD 08/28/2024 3:16 PM [facility] Eosinophils Relative 0.5 % LAB HEMETOLOGY METHOD 08/28/2024 3:16 PM [facility] Basophils Relative 0.4 % LAB HEMETOLOGY METHOD 08/28/2024 3:16 PM [facility] Immature Granulocytes Relative 0.4 % LAB HEMETOLOGY METHOD 08/28/2024 3:16 PM [facility] Neutrophils Absolute 7.90(H) 1.50 - 7.00 K/mcL LAB HEMETOLOGY METHOD 08/28/2024 3:16 PM [facility] Lymphocytes Absolute 2.55 1.00 - 5.00 K/mcL LAB HEMETOLOGY METHOD 08/28/2024 3:16 PM [facility] Monocytes Absolute 0.64 0.20 - 1.00 K/mcL LAB HEMETOLOGY METHOD 08/28/2024 3:[facility] Eosinophils Absolute 0.06 0.00 - 0.50 K/mcL LAB HEMETOLOGY METHOD 08/28/2024 3:16 PM [facility] Basophils Absolute 0.05 0.00 - 0.20 K/mcL LAB HEMETOLOGY METHOD 08/28/2024 3:16 PM [facility] Immature Granulocytes Absolute 0.05(H) 0.00 - 0.03 K/mcL LAB HEMETOLOGY METHOD 08/28/2024 3:16 PM EDT [facility] Blood Venous blood specimen / Unknown Venipuncture / Unknown 08/28/2024 2:11 PM EDT 08/28/2024 2:11 PM EDT Galdino Gorevalerio LAB BLOOD ORDERABLES Final Resul t Performing Organization Address City/[facility]/ZIP Co de Phone Number [facility] [address] [place] [address], [place] [phone] * Vitamin D 25 hydroxy (08/28/2024 2:11 PM EDT) Pathologist [facility] Vit D, 25-Hydroxy 39.3 30.0 - 80.0 ng/mL LAB CHEMISTRY METHOD 08/28/2024 5:21 PM EDT [facility] Blood Venous blood specimen / Unknown Venipuncture / Unknown 08/28/2024 2:11 PM EDT 08/28/2024 2:11 PM EDT Galdino Joss LAB BLOOD ORDERABLES Final Resul t Performing Organization Address [facility] de Phone Number [facility] [address] [place] [address], [place] [phone] * (ABNORMAL) Thyroid stimulating hormone (08/28/2024 2:11 PM EDT) Pathologist [facility] TSH 9.53(H) 0.40 - 4.00 mcIU/mL LAB CHEMISTRY METHOD 08/28/2024 5:21 PM EDT [facility] Blood Venous blood specimen / Unknown Venipuncture / Unknown 08/28/2024 2:11 PM EDT 08/28/2024 2:11 PM EDT Galdino Gorevalerio LAB BLOOD ORDERABLES Final Resul t Performing Organization Address City/[facility] Co de Phone Number [facility] [address] [place] [address], [place] [phone] * Hemoglobin A1c (08/28/2024 2:11 PM EDT) [facility] Hemoglobin A1C 5.9 <6.5 % LAB CHEMISTRY METHOD 08/28/2024 10:13 PM EDT [facility] Mean Bld Glu Estim. 123 mg/dL LAB CHEMISTRY METHOD 08/28/2024 10:13 PM EDT [facility] Blood Venous blood specimen / Unknown Venipuncture / Unknown 08/28/2024 2:11 PM EDT 08/28/2024 2:11 PM EDT [facility] LAB BLOOD ORDERABLES Final Resul t Performing Organization Address [facility]/ZIP Co de Phone Number [facility] [address] [place] [address], [place] [phone] * Vitamin B12 (08/28/2024 2:11 PM EDT) [facility] Vitamin B-12 345 250 - 900 pcg/mL LAB CHEMISTRY METHOD 08/28/2024 4:58 PM EDT [facility] Blood Venous blood specimen / Unknown Venipuncture / Unknown 08/28/2024 2:11 PM EDT 08/28/2024 2:11 PM EDT [facility] LAB BLOOD ORDERABLES Final Resul t Performing Organization Address City/[facility]/ZIP Co de Phone Number [facility] [address] [place] [address], [place] [phone] * COLONOSCOPY Anesthesia - [facility]; [facility] ENDOSCOPY (01/21/2024 1:24 PM EST) Anatomical Region Laterality Modality Endoscopy 01/21/2024 12:5 6 PM EST Narrative 01/21/2024 1:25 PM EST [facility] GI Patient Name: Arielle Schmitz Procedure Date: 01/21/2024 12:56 PM Date of : 1960 Age: 63 Room: ROOM 16 Gender: Female Note Status: Finalized Attending MD: oSco Cisneros DO, [id number] Procedure Date No Time: 01/21/2024 Procedure: Colonoscopy Indications: High risk colon cancer surveillance: Personal history of colonic polyps Providers: Soco Cisneros DO Referring MD: Antony Mederos DO Medicines: Monitored Anesthesia Care Complications: No immediate complications. Estimated blood loss: Minimal. Estimated Blood Loss: Estimated blood loss was minimal. Procedure: Pre-Anesthesia Assessment: - - Prior to the procedure, a History and Physical was performed, and patient medications and allergies were reviewed. The patient is competent. The risks and benefits of the procedure and the sedation options and risks were discussed with the patient. All questions were answered and informed consent was obtained. Patient identification and proposed procedure were verified by the physician, the nurse, the anesthesiologist, the tile classifier and the injection maintenance technician in the pre-procedure area in the endoscopy suite. Mental Status Examination: alert and oriented. Airway Examination: normal oropharyngeal airway and neck mobility. Respiratory Examination: clear to auscultation. CV Examination: normal. Prophylactic Antibiotics: The patient does not require prophylactic antibiotics. Prior Anticoagulants: The patient has taken no anticoagulant or antiplatelet agents. ASA Grade Assessment: II - A patient with severe systemic disease. After reviewing the risks and benefits, the patient was deemed in satisfactory condition to undergo the procedure. The anesthesia plan was to use monitored anesthesia care (MAC). Immediately prior to administration of medications, the patient was re-assessed for adequacy to receive sedatives. The heart rate, respiratory rate, oxygen saturations, blood pressure, adequacy of pulmonary ventilation, and response to care were monitored throughout the procedure. The physical status of the patient was re-assessed after the procedure. After I obtained informed consent, the scope was passed under direct vision. Throughout the procedure, the patient's blood pressure, pulse, and oxygen saturations were monitored continuously. The Olympus Pediatric Colonoscope was introduced through the anus and advanced to the cecum, identified by appendiceal orifice and ileocecal valve. The colonoscopy was performed without difficulty. The patient tolerated the procedure well. The quality of the bowel preparation was good. Findings: Hemorrhoids were found on perianal exam. A few small-mouthed diverticula were found in the sigmoid colon and descending colon. There was no evidence of diverticular bleeding. Three sessile polyps were found in the ascending colon. The polyps were 4 to 12 mm in size. These polyps were removed with a hot snare. Resection and retrieval were complete. Estimated blood loss was minimal. Two sessile polyps were found in the transverse colon. The polyps were 5 to 14 mm in size. Area was successfully injected with 4 mL saline for a lift polypectomy. These polyps were removed with a hot snare. Resection and retrieval were complete. Estimated blood loss was minimal. A 5 mm polyp was found in the sigmoid colon. The polyp was sessile. The polyp was removed with a cold snare. Resection and retrieval were complete. Estimated blood loss was minimal. The exam was otherwise without abnormality on direct and retroflexion views. Impression: - Hemorrhoids found on perianal exam. - Three 4 to 12 mm polyps in the ascending colon, removed with a hot snare. Resected and retrieved. - Two 5 to 14 mm polyps in the transverse colon, removed with a hot snare. Resected and retrieved. Injected. - One 5 mm polyp in the sigmoid colon, removed with a cold snare. Resected and retrieved. - The examination was otherwise normal on direct and retroflexion views. Recommendation: - - Discharge patient to home. - High fiber diet. - Continue present medications. - Await pathology results. - Repeat colonoscopy for surveillance based on pathology results. Procedure Code(s): --- Professional --- 33452, Colonoscopy, flexible; with removal of tumor(s), polyp(s), or other lesion(s) by snare technique 01697, Colonoscopy, flexible; with directed submucosal injection(s), any substance Diagnosis Code(s): --- Professional --- Z86.010, Personal history of colonic polyps K64.9, Unspecified hemorrhoids D12.3, Benign neoplasm of transverse colon (hepatic flexure or splenic flexure) D12.2, Benign neoplasm of ascending colon D12.5, Benign neoplasm of sigmoid colon CPT copyright 2020 [employer]. All rights reserved. The codes documented in this report are preliminary and upon tractor operator laser leveling review may be revised to meet current compliance requirements. SOCO CISNEROS Soco Cisneros DO 01/21/2024 1:25:31 PM This report has been signed electronically.Soco Cisneros DO Number of Addenda: 0 Note Initiated On: 01/21/2024 12:56 PM Scope Withdrawal Time: 0 hours 17 minutes 28 seconds Scope In: 12:59:45 PM Scope Out: 1:21:39 PM Endoscopy Department at [facility] - [address] [place] [phone] Procedure Note Soco Cisneros DO - 01/21/2024 [facility] GI Patient Name: Arielle Schmitz Procedure Date: 01/21/2024 12:56 PM Date of : 1960 Age: 63 Room: ROOM 16 Gender: Female Note Status: Finalized Attending MD: Soco Cisneros DO,[id number] Procedure Date No Time: 01/21/2024 Procedure: Colonoscopy Indications: High risk colon cancer surveillance: Personalhistory of colonic polyps Providers: Soco Cisneros DO Referring MD: Antony Mederos DO Medicines: Monitored Anesthesia Care Complications: No immediate complications. Estimated blood loss: Minimal. Estimated Blood Loss: Estimated blood loss was minimal. Procedure: Pre-Anesthesia Assessment: - - Prior to the procedure, a History and Physicalwas performed, and patient medications and allergieswere reviewed. The patient is competent. The risks and benefits of the procedure and the sedation optionsand risks were discussed with the patient. Allquestions were answered and informed consent was obtained. Patient identification and proposed procedure were verified by the physician, the nurse, the anesthesiologist, the tile classifier and thetechnician in the pre-procedure area in the endoscopy suite. Mental Status Examination: alert and oriented.Airway Examination: normal oropharyngeal airway and neck mobility. Respiratory Examination: clear to auscultation. CV Examination: normal. Prophylactic Antibiotics: The patient does not requireprophylactic antibiotics. Prior Anticoagulants: The patient has taken no anticoagulant or antiplatelet agents. ASA Grade Assessment: II - A patient with severesystemic disease. After reviewing the risks and benefits,the patient was deemed in satisfactory condition to undergo the procedure. The anesthesia plan was touse monitored anesthesia care (MAC). Immediately priorto administration of medications, the patient was re-assessed for adequacy to receive sedatives. The heart rate, respiratory rate, oxygen saturations, blood pressure, adequacy of pulmonary ventilation,and response to care were monitored throughout the procedure. The physical status of the patient was re-assessed after the procedure. After I obtained informed consent, the scope was passed under direct vision. Throughout theprocedure, the patient's blood pressure, pulse, and oxygen saturations were monitored continuously. TheOlympus Pediatric Colonoscope was introduced through theanus and advanced to the cecum, identified byappendiceal orifice and ileocecal valve. The colonoscopy was performed without difficulty. The patient tolerated the procedure well. The quality of the bowel preparation was good. Findings: Hemorrhoids were found on perianal exam. A few small-mouthed diverticula were found in the sigmoid colon and descending colon. There was no evidence of diverticular bleeding. Three sessile polyps were found in the ascending colon. The polyps were 4 to 12 mm in size. These polyps were removed with a hot snare. Resection and retrieval were complete. Estimated blood loss was minimal. Two sessile polyps were found in the transversecolon. The polyps were 5 to 14 mm in size. Area was successfully injected with 4 mL saline for a lift polypectomy. These polyps were removed with a hot snare. Resection and retrieval were complete. Estimated blood loss was minimal. A 5 mm polyp was found in the sigmoid colon. Thepolyp was sessile. The polyp was removed with a coldsnare. Resection and retrieval were complete. Estimatedblood loss was minimal. The exam was otherwise without abnormality ondirect and retroflexion views. Impression: - Hemorrhoids found on perianal exam. - Three 4 to 12 mm polyps in the ascending colon, removed with a hot snare. Resected and retrieved. - Two 5 to 14 mm polyps in the transverse colon, removed with a hot snare. Resected and retrieved. Injected. - One 5 mm polyp in the sigmoid colon, removed witha cold snare. Resected and retrieved. - The examination was otherwise normal on directand retroflexion views. Recommendation: - - Discharge patient to home. - High fiber diet. - Continue present medications. - Await pathology results. - Repeat colonoscopy for surveillance based on pathology results. Procedure Code(s): --- Professional --- 30028, Colonoscopy, flexible; with removal of tumor(s), polyp(s), or other lesion(s) by snare technique 28739, Colonoscopy, flexible; with directedsubmucosal injection(s), any substance Diagnosis Code(s): --- Professional --- Z86.010, Personal history of colonic polyps K64.9, Unspecified hemorrhoids D12.3, Benign neoplasm of transverse colon (hepatic flexure or splenic flexure) D12.2, Benign neoplasm of ascending colon D12.5, Benign neoplasm of sigmoid colon CPT copyright 2020 [employer]. All rights reserved. The codes documented in this report are preliminary and upon tractor operator laser leveling reviewmay be revised to meet current compliance requirements. SOCO CISNEROS Soco Cisneros DO 01/21/2024 1:25:31 PM This report has been signed electronically.Soco Cisneros DO Number of Addenda: 0 Note Initiated On: 01/21/2024 12:56 PM Scope Withdrawal Time: 0 hours 17 minutes 28 seconds Scope In: 12:59:45 PM Scope Out: 1:21:39 PM Endoscopy Department at [facility] - [address] [place] [phone] us Soco Cisneros DO GI~PROCEDURE ORDERABLES Final Re sult * RETA SCREENING DIGITAL (10/15/2023 1:44 PM EDT) Anatomical Region Laterality Modality Mammography 10/15/2023 12:5 9 PM EDT Narrative 10/15/2023 1:44 PM EDT [facility] Diagnostic Imaging Department [address] [place] [address] Patient: NADIRARIELLE /Age/Sex: 1960 - 63 - F Unit#: [id number] [facility]ing [facility] Ordering Physician: ANTONY MEDEROS MD Reta Screening Digital - 10/15/23 - 1316 Report Status:Signed EXAM: Reta Screening Digital EXAM DATE AND TIME: 10/15/2023 1:17 PM HISTORY: Screening. COMPARISON: 09/12/20, 09/09/20, 01/21/18 TECHNIQUE: Bilateral digital breast tomosynthesis was performed in the CC and MLO projections. Computer aided detection with iCAD ProFound AI 3D 3.1 was employed. TISSUE DENSITY: d. The breasts are extremely dense, which lowers the sensitivity of mammography. FINDINGS: No suspicious masses, grouped microcalcifications, or areas of architectural distortion are seen. The skin and vascularity are unremarkable. IMPRESSION: Stable mammographic appearance of the breasts. No evidence of malignancy is seen. A negative mammogram in the presence of a clinically suspicious palpable abnormality does not preclude the possibility of malignancy or alter the indications for biopsy. BI-RADS: Category 1: Negative RECOMMENDATION(S): 1: Routine screening mammogram BILATERAL in 1 year. Dictating Physician: KAYLA WILLARD MD Electronically Signed by: KAYLA WILLARD MD Dic Date/Time: 10/15/23 134 Sign date/Time: 10/15/231343 Procedure Note Kayla Willard MD - 12/29/2023 [facility] Diagnostic Imaging Department [address] [place] [address] Patient: NADIRARIELLE /Age/Sex: 1960 - 63 - F Unit#: [id number] Location/Status: [facility] CLI Mnemonic/Ordering Site: [facility] Ordering Physician: ANTONY MEDEROS MD [facility] Screening Digital - 10/15/23 - 1316 Report Status:Signed EXAM: [facility] Screening Digital EXAM DATE AND TIME: 10/15/2023 1:17 PM HISTORY: Screening. COMPARISON: 09/12/20, 09/09/20, 01/21/18 TECHNIQUE: Bilateral digital breast tomosynthesis was performed in the CCand MLO projections. Computer aided detection with [employer] 3D 3.1was employed. TISSUE DENSITY: d. The breasts are extremely dense, which lowers the sensitivity of mammography. FINDINGS: No suspicious masses, grouped microcalcifications, or areas ofarchitectural distortion are seen. The skin and vascularity are unremarkable. IMPRESSION: Stable mammographic appearance of the breasts. No evidence of malignancyis seen. A negative mammogram in the presence of a clinically suspicious palpable abnormality does not preclude the possibility of malignancy or alter the indications for biopsy. BI-RADS: Category 1: Negative RECOMMENDATION(S): 1: Routine screening mammogram BILATERAL in 1 year. Dictating Physician: KAYLA WILLARD MD Electronically Signed by: KAYLA WILLARD MD Dic Date/Time: 10/15/23 1344 Sign date/Time: 10/15/23 1344 us Antony Mederos DO IM BI PROCEDURES Final Resul t * RETA DEXA AXIAL SKELETON (02/02/2023 11:45 AM EST) Anatomical Region Laterality Modality Mammography 02/02/2023 10:4 5 AM EST Narrative 02/02/2023 11:45 AM EST [facility] Diagnostic Imaging Department [address] [place] [address] Patient: NADIRARIELLE.O.B./Age/Sex: 1960 - 62 - F Unit#: [id number] Location/Status: SPDIMAM/REG CLI [facility] Ordering Physician: JAMAR POWELL DR Reta Dexa Axial Skeleton - 02/02/23 - 1130 Report Status:Signed HISTORY: The patient is a 62-year-old postmenopausal female with clinical concern for metabolic bone disease. FINDINGS: Dual energy x-ray absorptiometry of the lumbar spine and femurs is performed. The mean bone mineral density at L1-2 is 0.757 gm/cm2 which is 65% of that of young normals and 76% of that of age matched controls. This yields a T- score of -3.4 and a Z-score of -2.0 which is diagnostic of osteoporosis. The mean bone mineral density of the femurs bilaterally is 0.637 gm/cm2 which is 63% of that of young normals and 73% of that of age matched controls. This yields a T-score of -2.9 and a Z-score of -1.9 which is diagnostic of osteoporosis. The T-score of the right femoral neck is osteoporosis and that of the left femoral neck is -3.2 which is diagnostic of osteoporosis. IMPRESSION: 1. Osteoporosis. There has been an increase of 1.2% in bone mineral density in the lumbar spine since the prior examination of 09/09/2020. There has been a decrease of 10.0% in bone mineral density in the right femur and a decrease of 9.5% in bone mineral density in the left femur. 2. FRAX analysis yields a 10-year probability of major osteoporotic fracture of 39.1% and a 10-year probability of hip fracture of 16.5%. Code 29728 Dictating Physician: TREMAYNE POST MD Electronically Signed by: TREMAYNE POST MD Dic Date/Time: 02/02/23 1144 Sign date/Time: 02/02/23 1145 Procedure Note Tremayne Post MD - 04/20/2023 [facility] Diagnostic Imaging Department [address] [place] [address] Patient: ARIELLE SCHMITZ /Age/Sex: 1960 - 62 - F Unit#: [id number] Location/Status: SPDIMAM/REG CLI [facility] Ordering Physician: JAMAR POWELL DR Reta Dexa Axial Skeleton - 02/02/23 - 1135 Report Status:Signed HISTORY: The patient is a 62-year-old postmenopausal female withclinical concern for metabolic bone disease. FINDINGS: Dual energy x-ray absorptiometry of the lumbar spine and femursis performed. The mean bone mineral density at L1-2 is 0.757 gm/cm2 which is65% of that of young normals and 76% of that of age matched controls. This yieldsa T- score of -3.4 and a Z-score of -2.0 which is diagnostic of osteoporosis. The mean bone mineral density of the femurs bilaterally is 0.637 gm/qx5mfqfg is 63% of that of young normals and 73% of that of age matched controls.This yields a T-score of -2.9 and a Z-score of -1.9 which is diagnostic of osteoporosis. The T-score of the right femoral neck is osteoporosis andthat of the left femoral neck is -3.2 which is diagnostic of osteoporosis. IMPRESSION: 1. Osteoporosis. There has been an increase of 1.2% in bone mineraldensity in the lumbar spine since the prior examination of 09/09/2020. There has gt decrease of 10.0% in bone mineral density in the right femur and adecrease of 9.5% in bone mineral density in the left femur. 2. FRAX analysis yields a 10-year probability of major osteoporoticfracture of 39.1% and a 10-year probability of hip fracture of 16.5%. 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 Expl anation Health Care Decision (hx) 09/23/2019 AD ANDERSON DIRECTIVE Health Care Decision (hx) 09/23/2019 AD ANDERSON DIRECTIVE Health Care Decision (hx) 09/23/2019 AD ANDERSON DIRECTIVE Health Care Decision (hx) 09/23/2019 AD ANDERSON DIRECTIVE Health Care Decision (hx) 09/23/2019 AD ANDERSON DIRECTIVE Health Care Decision (hx) 09/23/2019 AD ANDERSON DIRECTIVE Health Care Decision (hx) 09/23/2019 AD ANDERSON DIRECTIVE Health Care Decision (hx) 09/23/2019 AD ANDERSON DIRECTIVE Health Care Decision (hx) 09/23/2019 AD ANDERSON DIRECTIVE Health Care Decision (hx) 09/23/2019 AD ANDERSON DIRECTIVE Health Care Decision (hx) 09/23/2019 AD ANDERSON DIRECTIVE Health Care Decision (hx) 09/23/2019 AD ANDERSON DIRECTIVE Health Care Decision (hx) 09/23/2019 AD ANDERSON DIRECTIVE Health Care Decision (hx) 09/23/2019 AD ANDERSON DIRECTIVE Care Teams Drawbench Operator Relationship Specialty Start Date End Date Antony Mederos DO [address] [place] [phone] [facility] - General 11/05/22
== END 2024-10-09 12:05 | disposition home or self-care (01) ==
LOC: HO.US 12:04
PROVIDERS: PCP Internal Medicine; Visit Provider Nurse Practitioner Family
DX: N20.0 Calculus of kidney (principal)
CPT/HCPCS: 76775

== ENCOUNTER → 2024-10-09 12:07 | Outpatient (BNV) | payer OTHER, SELFPAY | PROVIDERS: PCP Internal Medicine; Visit Provider Radiology Diagnostic Radiology | DX: N20.0 Calculus of kidney (principal) | CPT/HCPCS: 76775 ==